=== PATIENT | male | born 1940 | race Caucasian/White ===

== ENCOUNTER → 2016-08-19 | Outpatient (CLI) | payer MEDICARE, OTHER ==
--- NOTE | 2016-08-19 23:04 | CT ---
EXAMINATION TYPE: CT abdomen pelvis wo con DATE OF EXAM: 08/19/2016 6:49 PM HISTORY: PT states of abdominal pain. HX of lymphoma. CT DLP: 390.8 mGycm. Automated Exposure Control for Dose Reduction was Utilized. TECHNIQUE: CT scan of the abdomen and pelvis is performed with oral but without IV contrast. COMPARISON: CT chest abdomen and pelvis December 14, 2015 FINDINGS: Within the limitations of a non-contrast study, the following observations are made. LUNG BASES: No significant abnormality is seen. LIVER/GB: Cholecystectomy clips are redemonstrated. PANCREAS: No significant abnormality is seen. SPLEEN: No significant abnormality is seen. ADRENALS: No significant abnormality is seen. KIDNEYS: A 1.2 cm simple appearing renal cyst anteriorly lower pole level right kidney on axial image 36 is felt stable. BOWEL: The oral contrast reaches level of the left colon. There is no suspicious small or large bowel dilatation seen. GENITAL ORGANS: There is heterogeneous enlarged prostate gland bulging on bladder base, underlying BP H is suspected, clinical correlation is advised. LYMPH NODES: There are slightly prominent new left groin lymph nodes. For reference left groin lymph node measures 1.0 x 0.9 cm on axial image 87. There are new enlarged retroperitoneal lymph nodes. For reference left periaortic lymph node measures 1.8 x 1.8 cm on axial image 38. Additional suspicious smaller but prominent retroperitoneal lymph nodes are seen superior to this. OSSEOUS STRUCTURES: Multilevel spurring and spine is redemonstrated. There is vacuum disc phenomenon with disc space narrowing L4-L5 level. OTHER: No significant additional abnormality is seen. IMPRESSION: 1. No significant acute finding is seen to account for patient's symptoms. 2. New suspicious retroperitoneal or left periaortic adenopathy worrisome for neoplastic recurrence. Clinical correlation advised. Consider PET/CT follow-up.
== END | disposition home or self-care (01) ==
LOC: RADCTMAIN 16:19
PROVIDERS: ATTEND Surgery
DX: C85.90 Non-Hodgkin lymphoma, unspecified, unspecified site (principal)
CPT/HCPCS: 74176

== ENCOUNTER 2017-05-02 11:50 | Day surgery (SDC) | payer MEDICARE ==
[2017-04-30 08:37] VITALS: BMI 24.1
[~2017-05-02 11:50] MED LIST: HEPARIN SODIUM,PORCINE 5,000 UNIT/ML 1 ML VIAL SQ ONE; LACTATED RINGERS 1,000 ML IV SCH; MORPHINE SULFATE 2 MG/ML SYRINGE IV PRN; ONDANSETRON 4 MG/2 ML VIAL IVP PRN; Pre Op ABX Message 1 EACH MISC MISCELLANE ONE; ceFAZolin IN SWFI 2 GM/20 ML SYRINGE IVP ONE
[2017-05-02] MEDS ORDERED: LIDOCAINE 1% 20 ML VIAL (10MG/ML) FOR IV START INTRADERMA ONE (12:20)
[2017-05-02] MEDS ORDERED: LIDOCAINE 1% INJ 10MG/ML (20 ML MDV) ONE (12:55)
[2017-05-02] MEDS ORDERED: PROPOFOL 10 MG/ML 20 ML VIAL IV ONE (12:55)
[2017-05-02] MEDS ORDERED: fentaNYL (PF) 50 MCG/ML 2 ML AMP ONE (12:55)
[2017-05-02] MEDS ORDERED: BUPIVACAINE (PF) 0.25% 30 ML VIAL SQ ONE ×2 (13:13)
[2017-05-02 13:45] VITALS: TEMP 97.1
[2017-05-02 14:10] VITALS: RESP 16
[2017-05-02 14:19] VITALS: BP 129/71; PULSE 53
--- NOTE | 2017-05-02 16:37 | P.OP ---
Date of Procedure: 05/02/17 Preoperative Diagnosis: Soft tissue mass of the scalp Postoperative Diagnosis: Same Procedure(s) Performed: Excision soft tissue mass of scalp Anesthesia: MAC, local Surgeon: Naomi Whyte Estimated Blood Loss (ml): 5 Pathology: other Condition: stable Disposition: PACU Indications for Procedure: 76 years old male presents with a scalp mass present for 20 yrs and now is painful. Operative Findings: Sebaceous cyst of the scalp Description of Procedure: The patient was brought to the operating room and placed in supine position. Scalp was prepped and draped. 2x1 cm cystic mass was excised completetly using bovie elctrocautery. Resulting defect 2x1 x1 cm . It was irrigated with normal saline and hemostasis was checked. It was closed in 2 layers using 3-0 vicryl and interrupted 3-0 Nylon
== END 2017-05-02 14:38 | disposition home or self-care (01) ==
LOC: OR 11:50
PROVIDERS: ATTEND Surgery
DX: L72.11 Pilar cyst (principal); K21.9 Gastro-esophageal reflux disease without esophagitis; I48.91 Unspecified atrial fibrillation; N42.9 Disorder of prostate, unspecified; Z91.041 Radiographic dye allergy status; Z88.8 Allergy status to other drugs, medicaments and biological substances; Z79.82 Long term (current) use of aspirin; Z79.891 Long term (current) use of opiate analgesic; Z79.899 Other long term (current) drug therapy
CPT/HCPCS: 11422; 12031; 88304; J1644; J0690; J2405; J2001; J3010; J2704

== ENCOUNTER → 2017-09-30 | Outpatient (CLI) | payer MEDICARE ==
--- NOTE | 2017-09-30 09:57 | XR ---
EXAMINATION TYPE: XR chest 2V DATE OF EXAM: 09/30/2017 COMPARISON: 01/29/2016 TECHNIQUE: PA and lateral views submitted. HISTORY: Lymphoma FINDINGS: The lungs are clear and there is no pneumothorax, pleural effusion, or focal pneumonia. Mild soft t issue prominence of the right suprahilar region may represent a related the patient's history of lymp tj. No overt failure. Findings appear stable from previous chest x-ray. IMPRESSION: 1. No acute process.
== END | disposition home or self-care (01) ==
LOC: RADXRMAIN 09:35
PROVIDERS: ATTEND Internal Medicine Hematology & Oncology
DX: C82.01 Follicular lymphoma grade I, lymph nodes of head, face, and neck (principal); I88.0 Nonspecific mesenteric lymphadenitis; K26.9 Duodenal ulcer, unspecified as acute or chronic, without hemorrhage or perforation; M15.9 Polyosteoarthritis, unspecified
CPT/HCPCS: 71046

== ENCOUNTER → 2018-06-06 | Outpatient (CLI) | payer MEDICARE ==
--- NOTE | 2018-06-07 10:41 | PE ---
EXAMINATION TYPE: PET CT fusion skull to thigh DATE OF EXAM: 06/06/2018 COMPARISON: CT abdomen pelvis 08/19/2016, chest abdomen pelvis CT 12/14/2015 Prior PET/CT: 09/07/2016 HISTORY: Lymphoma TECHNIQUE: Following the intravenous administration of 13.5 mCi of F-18 FDG, whole body images are p erformed from the skull base to the midthigh. Images are reviewed on the computer in the coronal, ax ial, and sagittal planes. Reconstructed rotating images are created on independent workstation and r eviewed on the computer. A localization and attenuation correction CT is performed in conjunction w ith the PET scan. DLP: 460.24 mGycm SCAN: Subsequent Blood glucose: 67 mg/dL Average Mediastinum SUV: 1.01 Average Liver SUV: 1.39 FINDINGS: NECK: No abnormal uptake. THORAX: There is mild increased uptake within the pretracheal lymph node with an SUV value of 1.9. PE T image 94. There is mild increased uptake within a right peribronchial lymph node at the right hilum measuring 2.6 SUV. PET image 103. A subtle nodule within the upper right middle lobe, PET image 112 has an SUV value of 0.3 and is not suspicious based on imaging. This area is stable from comparison studies 2015 and 2017. ABDOMEN: No abnormal uptake PELVIS: No abnormal uptake OSSEOUS STRUCTURES: No abnormal uptake LOCALIZATION CT: The ascending thoracic aorta at the level the main pulmonary artery is 3.9 cm patent main pulmonary artery the bifurcation is 3.3 cm. There are scattered lymph nodes within the mediasti num. Enlarged mediastinal adenopathy is not identified. The largest lymph node pretracheal space lynda ures 1.0 cm corresponds to the area of intermediate signal discussed above. COMPARISON: A subtle nodule within the upper right middle lobe, PET image 112 has an SUV value of 0.3 . This area is stable from comparison studies 2015 and 2017. Comparison PET/CT: The previous uptake within the right neck is not evident on the current exam. Upta ke within the mediastinum is diminished current examination. Uptake within the periaortic region with in the abdomen and pelvis are not evident on the current examination. No suspicious left inguinal linda nopathy is currently evident. No suspicious new areas of uptake are evident. IMPRESSION: 1. Previous focal areas of radiotracer accumulation have resolved. 2. Some mild residual may remain within mediastinal lymph nodes discussed above. 3. No suspicious new focal radiotracer accumulation to suggest recurrent or metastatic lymphoma.
== END | disposition home or self-care (01) ==
LOC: RADPETMAIN 11:37
PROVIDERS: ATTEND Internal Medicine Hematology & Oncology
DX: C82.01 Follicular lymphoma grade I, lymph nodes of head, face, and neck (principal)
CPT/HCPCS: 78815; A9552

== ENCOUNTER 2018-06-07 09:05 | Observation (INO) | payer MEDICARE ==
[2018-06-07 09:11] VITALS: RESP 18
[2018-06-07] MEDS ORDERED: SODIUM CHLORIDE 0.9% 1,000 ML IV STA (09:25)
[2018-06-07] MEDS ORDERED: HEPARIN SODIUM,PORCINE 10,000 UNIT/ML 1 ML VIAL IV STA (09:26)
[2018-06-07] MEDS ORDERED: HEPARIN SOD,PORK IN 0.45% NACL 25,000 UNIT in 0.45% NACL 1 250ML.BAG IV SCH (09:30)
--- NOTE | 2018-06-07 09:31 | ED ---
General Adult HPI - General Chief complaint: Weakness Stated complaint: Weakness Source: patient Mode of arrival: wheelchair Limitations: no limitations - Related Data Home Medications Medication Instructions Recorded Confirmed Aspirin 81 mg PO DAILY 07/25/15 06/07/18 Esomeprazole Magnesium [NexIUM] 20 mg PO QAM 07/25/15 06/07/18 Propafenone [Rythmol] 150 mg PO BID 07/25/15 06/07/18 Multivitamins, Thera [Multivitamin 1 tab PO DAILY 06/07/18 06/07/18 (formulary)] Allergies Allergy/AdvReac Type Severity Reaction Status Date / Time epinephrine Allergy Rapid Verified 06/07/18 09:47 Heart Rate Iodinated Contrast- Oral and Allergy Rash/Hives Verified 06/07/18 09:47 IV Dye [Iodinated Contrast Media - IV Dye] iodine Allergy Rash/Hives Verified 06/07/18 09:47 Review of Systems ROS Statement: Those systems with pertinent positive or pertinent negative responses have been documented in the HPI. ROS Other: All systems not noted in ROS Statement are negative. Past Medical History Past Medical History: Atrial Fibrillation, Cancer, GERD/Reflux, Osteoarthritis ( OA), Prostate Disorder Additional Past Medical History / Comment(s): Hiatal hernia. HX OF PVCs. LYMPHOMA History of Any Multi-Drug Resistant Organisms: None Reported Past Surgical History: Appendectomy, Cholecystectomy, Orthopedic Surgery Additional Past Surgical History / Comment(s): left knee, left rotator cuff , LEFT FOOT SURGERY Past Anesthesia/Blood Transfusion Reactions: No Reported Reaction Past Psychological History: No Psychological Hx Reported Smoking Status: Never smoker Past Alcohol Use History: None Reported Past Drug Use History: None Reported - Past Family History Brother(s) Family Medical History: Cancer Additional Family Medical History / Comment(s): LUNG CANCER Father Family Medical History: Cancer Additional Family Medical History / Comment(s): prostate Mother Family Medical History: Cancer Additional Family Medical History / Comment(s): uterine General Exam Limitations: no limitations Course Vital Signs 06/07/18 06/07/18 06/07/18 09:07 09:17 09:30 Temperature 97.4 F L Pulse Rate 74 99 Respiratory 18 18 18 Rate Blood Pressure 129/84 114/90 O2 Sat by Pulse 100 100 Oximetry 06/07/18 06/07/18 06/07/18 10:00 10:30 11:00 Temperature Pulse Rate 83 80 84 Respiratory 18 18 18 Rate Blood Pressure 114/87 112/76 105/81 O2 Sat by Pulse 99 99 99 Oximetry Medical Decision Making - Medical Decision Making Dictation was produced using [employer] dictation software. please excuse any grammatical, word or spelling errors. Chief Complaint: 77-year-old male with past medical history of paroxysmal atrial fibrillation, leukemia presents with palpitations. History of Present Illness:77-year-old male. Patient states he does have history of paroxysmal atrial fibrillation. Patient has been managed on antiarrhythmics. Last time he had episode of atrial fibrillation was allegedly 3 years ago. Patient not on any anticoagulation medications. Patient states he woke up with feelings of palpitations. He got up to the bathroom. [place] so weak that he couldn't stand. He felt at baseline last night. He takes propafenone and 150 mg twice a day. 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 The ROS documented in this emergency department record has been reviewed and confirmed by me. Those systems with pertinent positive or negative responses have been documented in the HPI. All other systems are other negative and/or noncontributory. PHYSICAL EXAM: General Impression: Alert and oriented x3, not in acute distress HEENT: Normocephalic atraumatic, extra-ocular movements intact, pupils equal and reactive to light bilaterally, mucous membranes moist. Cardiovascular: Irregular Chest: Lungs clear to auscultation bilaterally, no rhonchi, no wheeze, no rales Abdomen: Bowel sounds present, abdomen soft, non-tender, non-distended, no organomegaly Musculoskeletal: Pulses present and equal in all extremities, no peripheral edema Motor: Power 5/5 bilaterally, no focal deficits noted Neurological: CN II-XII grossly intact, no focal motor or sensory deficits noted Skin: Intact with no visualized rashes Psych: Normal affect and mood ED course: 77-year-old male with chief complaint of weakness. As upon arrival are within acceptable limits. EKG was obtained showing atrial fibrillation. Discussed patient case with Dr. Chinag who recommended that patient be given 300 mg of propafenon and await for conversion to sinus tachycardia.Laboratory evaluation obtained. CBC, metabolic panel, cardiac enzymes are negative. Urinalysis unremarkable. Patient reevaluated still found to be in atrial fibrillation. Patient started on heparin. I believe patient is a good candidate for heparin. He has a low HAS-BLED score. Patient to be admitted to internal medicine with cardiology consultation for management of recurrent atrial fibrillation. Patient reevaluated found with stable medical condition. Patient does not have a rapid ventricular rate. EKG Interpretation: A 12 lead EKG was obtained. It was interpreted by myself and attending physician. There is a P wave before every QRS complex. Rate is 85. Rhythm is inch or fibrillation, HI interval, QRS 86, QTC 440. QT is not prolonged. No ST segment depression or elevation.. Overall, this EKG is unremarkable - Lab Data Result diagrams: 06/07/18 09:36 12 09:36 Lab Results 06/07/18 06/07/18 06/07/18 Range/Units 09:36 09:36 09:36 WBC 4.8 (3.8-10.6) k/uL RBC 5.19 (4.30-5.90) m/uL Hgb 16.2 (13.0-17.5) gm/dL Hct 48.4 (39.0-53.0) % MCV 93.4 (80.0-100.0) fL MCH 31.2 (25.0-35.0) pg MCHC 33.5 (31.0-37.0) g/dL RDW 13.7 (11.5-15.5) % Plt Count 140 L (150-450) k/uL Neutrophils % 62 % Lymphocytes % 23 % Monocytes % 9 % Eosinophils % 3 % Basophils % 1 % Neutrophils # 3.0 (1.3-7.7) k/uL Lymphocytes # 1.1 (1.0-4.8) k/uL Monocytes # 0.4 (0-1.0) k/uL Eosinophils # 0.1 (0-0.7) k/uL Basophils # 0.0 (0-0.2) k/uL Sodium 139 (137-145) mmol/L Potassium 4.5 (3.5-5.1) mmol/L Chloride 107 (98-107) mmol/L Carbon Dioxide 26 (22-30) mmol/L Anion Gap 6 mmol/L BUN 16 (9-20) mg/dL Creatinine 0.94 (0.66-1.25) mg/dL Est GFR (CKD-EPI)AfAm >90 (>60 ml/min/1.73 sqM) Est GFR (CKD-EPI)NonAf 79 (>60 ml/min/1.73 sqM) Glucose 94 (74-99) mg/dL Calcium 9.3 (8.4-10.2) mg/dL Magnesium 2.1 (1.6-2.3) mg/dL Total Bilirubin 1.0 (0.2-1.3) mg/dL AST 26 (17-59) U/L ALT 24 (21-72) U/L Alkaline Phosphatase 50 (38-126) U/L Total Creatine Kinase 75 (55-170) U/L CK-MB (CK-2) 0.7 (0.0-2.4) ng/mL CK-MB (CK-2) Rel Index 0.9 Troponin I <0.012 (0.000-0.034) ng/mL Total Protein 6.7 (6.3-8.2) g/dL Albumin 3.9 (3.5-5.0) g/dL TSH 3.850 (0.465-4.680) mIU/L Urine Color Urine Appearance (Clear) Urine pH (5.0-8.0) Ur Specific [place] (1.001-1.035) Urine Protein (Negative) Urine Glucose (UA) (Negative) Urine Ketones (Negative) Urine Blood (Negative) Urine Nitrite (Negative) Urine Bilirubin (Negative) Urine Urobilinogen (<2.0) mg/dL Ur Leukocyte Esterase (Negative) 06/07/18 Range/Units 11:08 WBC (3.8-10.6) k/uL RBC (4.30-5.90) m/uL Hgb (13.0-17.5) gm/dL Hct (39.0-53.0) % MCV (80.0-100.0) fL MCH (25.0-35.0) pg MCHC (31.0-37.0) g/dL RDW (11.5-15.5) % Plt Count (150-450) k/uL Neutrophils % % Lymphocytes % % Monocytes % % Eosinophils % % Basophils % % Neutrophils # (1.3-7.7) k/uL Lymphocytes # (1.0-4.8) k/uL Monocytes # (0-1.0) k/uL Eosinophils # (0-0.7) k/uL Basophils # (0-0.2) k/uL Sodium (137-145) mmol/L Potassium (3.5-5.1) mmol/L Chloride (98-107) mmol/L Carbon Dioxide (22-30) mmol/L Anion Gap mmol/L BUN (9-20) mg/dL Creatinine (0.66-1.25) mg/dL Est GFR (CKD-EPI)AfAm (>60 ml/min/1.73 sqM) Est GFR (CKD-EPI)NonAf (>60 ml/min/1.73 sqM) Glucose (74-99) mg/dL Calcium (8.4-10.2) mg/dL Magnesium (1.6-2.3) mg/dL Total Bilirubin (0.2-1.3) mg/dL AST (17-59) U/L ALT (21-72) U/L Alkaline Phosphatase (38-126) U/L Total Creatine Kinase (55-170) U/L CK-MB (CK-2) (0.0-2.4) ng/mL CK-MB (CK-2) Rel Index Troponin I (0.000-0.034) ng/mL Total Protein (6.3-8.2) g/dL Albumin (3.5-5.0) g/dL TSH (0.465-4.680) mIU/L Urine Color Light Yellow Urine Appearance Clear (Clear) Urine pH 8.5 H (5.0-8.0) Ur Specific [place] 1.007 (1.001-1.035) Urine Protein Negative (Negative) Urine Glucose (UA) Negative (Negative) Urine Ketones 1+ H (Negative) Urine Blood Negative (Negative) Urine Nitrite Negative (Negative) Urine Bilirubin Negative (Negative) Urine Urobilinogen <2.0 (<2.0) mg/dL Ur Leukocyte Esterase Negative (Negative) Disposition Clinical Impression: Atrial fibrillation Disposition: ADMITTED IP TO THIS HOSP Condition: Good Is patient prescribed a controlled substance at d/c from ED?: No Referrals: Liban Molina MD [Primary Care Provider] - 1-2 days Decision Time: 11:41
[2018-06-07] MEDS ORDERED: PROPAFENONE 150 MG TAB PO STA (09:33)
[2018-06-07 09:49] LABS: Basophils % (A) 1 %; Eosinophils # (A) 0.1 k/uL (0-0.7); Eosinophils % (A) 3 %; HCT 48.4 % (39.0-53.0); HGB 16.2 gm/dL (13.0-17.5); Lymphocytes # (A) 1.1 k/uL (1.0-4.8); Lymphocytes % (A) 23 %; MCH 31.2 pg (25.0-35.0); MCHC 33.5 g/dL (31.0-37.0); MCV 93.4 fL (80.0-100.0); Mean Platelet Volume 8.5; Monocytes # (A) 0.4 k/uL (0-1.0); Monocytes % (A) 9 %; Neutrophils % (A) 62 %; Platelet Count 140 k/uL (150-450); RBC 5.19 m/uL (4.30-5.90); RDW 13.7 % (11.5-15.5); WBC 4.8 k/uL (3.8-10.6)
[2018-06-07 09:58] LABS: Partial Thromboplastin Time 24.4 sec (22.0-30.0); Prothrombin Time 10.3 sec (9.0-12.0)
[2018-06-07 10:06] LABS: ALT 24 U/L (21-72); AST 26 U/L (17-59); Albumin 3.9 g/dL (3.5-5.0); Alkaline Phosphatase 50 U/L (38-126); Anion Gap 6 mmol/L; Blood Urea Nitrogen 16 mg/dL (9-20); Calcium 9.3 mg/dL (8.4-10.2); Carbon Dioxide 26 mmol/L (22-30); Chloride 107 mmol/L (98-107); Glucose 94 mg/dL (74-99); Magnesium 2.1 mg/dL (1.6-2.3); Potassium 4.5 mmol/L (3.5-5.1); Sodium 139 mmol/L (137-145); Total Protein 6.7 g/dL (6.3-8.2)
[2018-06-07 10:13] LABS: Creatine Kinase 75 U/L (55-170)
[2018-06-07 10:26] LABS: Creatine Kinase MB 0.7 ng/mL (0.0-2.4); Troponin I <0.012 ng/mL (0.000-0.034)
[2018-06-07 11:22] LABS: Appearance,Urine Clear (Clear); Bilirubin,Urine Negative (Negative); Blood,Urine Negative (Negative); Color,Urine Light Yellow; Glucose,Urine (UA) Negative (Negative); Ketones,Urine 1+ (Negative); Leukocyte Esterase,Urine Negative (Negative); Nitrite,Urine Negative (Negative); PH, Urine 8.5 (5.0-8.0); Protein,Urine Negative (Negative); Specific Gravity,Urine 1.007 (1.001-1.035); Urobilinogen,Urine <2.0 mg/dL (<2.0)
[2018-06-07] MEDS ORDERED: NALOXONE 0.4 MG/ML 1 ML VIAL IV PRN (11:41)
--- NOTE | 2018-06-07 11:43 | XR ---
EXAMINATION TYPE: XR chest 2V DATE OF EXAM: 06/07/2018 COMPARISON: 09/30/2017 HISTORY: Shortness of breath TECHNIQUE: Frontal and lateral views of the chest are obtained. FINDINGS: Scattered senescent parenchymal changes noted. Hyperinflation compatible with COPD. No evidence for infiltrate. No evidence for atelectasis. Heart size is stable. Mediastinal structures are stable and grossly unremarkable. No evidence for hilar prominence. Degenerative changes dorsal spine. IMPRESSION: 1. No evidence for acute pulmonary disease.
[2018-06-07] MEDS ORDERED: SODIUM CHLORIDE 0.9% 1,000 ML IV SCH (11:45)
--- NOTE | 2018-06-07 12:18 | ED ---
Medical Decision Making - Medical Decision Making Patient was given 300 mg of Propaganone. Patient spontaneously converted back to sinus rhythm. Heparin was discontinued. Discussed patient case with Dr. perez patient advised to resume his normal medications. who agrees that patient is clear for discharge. To follow-up with cardiology outpatient. Told to resume his normal medications - Lab Data Result diagrams: 06/07/18 09:36 06/07/18 09:36 Lab Results 06/07/18 06/07/18 06/07/18 Range/Units 09:36 09:36 09:36 WBC 4.8 (3.8-10.6) k/uL RBC 5.19 (4.30-5.90) m/uL Hgb 16.2 (13.0-17.5) gm/dL Hct 48.4 (39.0-53.0) % MCV 93.4 (80.0-100.0) fL MCH 31.2 (25.0-35.0) pg MCHC 33.5 (31.0-37.0) g/dL RDW 13.7 (11.5-15.5) % Plt Count 140 L (150-450) k/uL Neutrophils % 62 % Lymphocytes % 23 % Monocytes % 9 % Eosinophils % 3 % Basophils % 1 % Neutrophils # 3.0 (1.3-7.7) k/uL Lymphocytes # 1.1 (1.0-4.8) k/uL Monocytes # 0.4 (0-1.0) k/uL Eosinophils # 0.1 (0-0.7) k/uL Basophils # 0.0 (0-0.2) k/uL PT (9.0-12.0) sec INR (<1.2) APTT (22.0-30.0) sec Sodium 139 (137-145) mmol/L Potassium 4.5 (3.5-5.1) mmol/L Chloride 107 (98-107) mmol/L Carbon Dioxide 26 (22-30) mmol/L Anion Gap 6 mmol/L BUN 16 (9-20) mg/dL Creatinine 0.94 (0.66-1.25) mg/dL Est GFR (CKD-EPI)AfAm >90 (>60 ml/min/1.73 sqM) Est GFR (CKD-EPI)NonAf 79 (>60 ml/min/1.73 sqM) Glucose 94 (74-99) mg/dL Calcium 9.3 (8.4-10.2) mg/dL Magnesium 2.1 (1.6-2.3) mg/dL Total Bilirubin 1.0 (0.2-1.3) mg/dL AST 26 (17-59) U/L ALT 24 (21-72) U/L Alkaline Phosphatase 50 (38-126) U/L Total Creatine Kinase 75 (55-170) U/L CK-MB (CK-2) 0.7 (0.0-2.4) ng/mL CK-MB (CK-2) Rel Index 0.9 Troponin I <0.012 (0.000-0.034) ng/mL Total Protein 6.7 (6.3-8.2) g/dL Albumin 3.9 (3.5-5.0) g/dL TSH 3.850 (0.465-4.680) mIU/L Urine Color Urine Appearance (Clear) Urine pH (5.0-8.0) Ur Specific [place] (1.001-1.035) Urine Protein (Negative) Urine Glucose (UA) (Negative) Urine Ketones (Negative) Urine Blood (Negative) Urine Nitrite (Negative) Urine Bilirubin (Negative) Urine Urobilinogen (<2.0) mg/dL Ur Leukocyte Esterase (Negative) 06/07/18 06/07/18 Range/Units 09:36 11:08 WBC (3.8-10.6) k/uL RBC (4.30-5.90) m/uL Hgb (13.0-17.5) gm/dL Hct (39.0-53.0) % MCV (80.0-100.0) fL MCH (25.0-35.0) pg MCHC (31.0-37.0) g/dL RDW (11.5-15.5) % Plt Count (150-450) k/uL Neutrophils % % Lymphocytes % % Monocytes % % Eosinophils % % Basophils % % Neutrophils # (1.3-7.7) k/uL Lymphocytes # (1.0-4.8) k/uL Monocytes # (0-1.0) k/uL Eosinophils # (0-0.7) k/uL Basophils # (0-0.2) k/uL PT 10.3 (9.0-12.0) sec INR 1.0 (<1.2) APTT 24.4 (22.0-30.0) sec Sodium (137-145) mmol/L Potassium (3.5-5.1) mmol/L Chloride (98-107) mmol/L Carbon Dioxide (22-30) mmol/L Anion Gap mmol/L BUN (9-20) mg/dL Creatinine (0.66-1.25) mg/dL Est GFR (CKD-EPI)AfAm (>60 ml/min/1.73 sqM) Est GFR (CKD-EPI)NonAf (>60 ml/min/1.73 sqM) Glucose (74-99) mg/dL Calcium (8.4-10.2) mg/dL Magnesium (1.6-2.3) mg/dL Total Bilirubin (0.2-1.3) mg/dL AST (17-59) U/L ALT (21-72) U/L Alkaline Phosphatase (38-126) U/L Total Creatine Kinase (55-170) U/L CK-MB (CK-2) (0.0-2.4) ng/mL CK-MB (CK-2) Rel Index Troponin I (0.000-0.034) ng/mL Total Protein (6.3-8.2) g/dL Albumin (3.5-5.0) g/dL TSH (0.465-4.680) mIU/L Urine Color Light Yellow Urine Appearance Clear (Clear) Urine pH 8.5 H (5.0-8.0) Ur Specific [place] 1.007 (1.001-1.035) Urine Protein Negative (Negative) Urine Glucose (UA) Negative (Negative) Urine Ketones 1+ H (Negative) Urine Blood Negative (Negative) Urine Nitrite Negative (Negative) Urine Bilirubin Negative (Negative) Urine Urobilinogen <2.0 (<2.0) mg/dL Ur Leukocyte Esterase Negative (Negative) Disposition Clinical Impression: Atrial fibrillation Disposition: ADMITTED IP TO THIS [facility] Condition: Good Time of Disposition: 12:17
[2018-06-07 13:10] VITALS: BP 116/74; PULSE 60; TEMP 98.1
== END 2018-06-07 12:22 | disposition home or self-care (01) ==
LOC: EC 09:05 → 3SCARD 11:44
PROVIDERS: ADMIT Internal Medicine; ATTEND Internal Medicine
DX: I48.0 Paroxysmal atrial fibrillation (principal); K21.9 Gastro-esophageal reflux disease without esophagitis; Z79.82 Long term (current) use of aspirin; Z79.899 Other long term (current) drug therapy; Z85.6 Personal history of leukemia; Z85.72 Personal history of non-Hodgkin lymphomas; Z80.1 Family history of malignant neoplasm of trachea, bronchus and lung
CPT/HCPCS: 96376; 96365; 99285; 36415; 93005; 80053; 82550; 82553; 83735; 84443; 84484; 85025; 85610; 85730; 81003; 71046; G0378; J1644 ×2

== ENCOUNTER 2019-07-06 11:25 | Emergency (ER) | payer MEDICARE ==
[2019-07-06 11:36] VITALS: BP 129/74; RESP 18
[2019-07-06] MEDS ORDERED: SODIUM CHLORIDE 0.9% 500 ML 500 ML IV STA (11:57)
[2019-07-06] MEDS ORDERED: ONDANSETRON 4 MG/2 ML VIAL IVP STA (11:58)
--- NOTE | 2019-07-06 12:04 | ED ---
General Adult HPI - General Chief complaint: Chest Pain Stated complaint: chest pain Time Seen by Provider: 07/06/19 11:35 Source: patient, RN notes reviewed, old records reviewed Mode of arrival: ambulatory Limitations: no limitations - History of Present Illness Initial comments: This is a 78-year-old male who presents emergency Department stating he has a history of atrial fibrillation and lymphoma. Patient states this morning about 2:30 in the morning he could feel his heart racing so he waited a while and then took 3 Rythmol pills where he normally takes one. Patient states this is with the assembl[employer] is told to do. Patient states it seemed to settle down but it came back and then it seemed to go away and then it came back again so he decided come emergency department. Patient states lying in bed he has no symptoms but earlier today any time he got up to walk around the heart rate was start going and he would feel very lightheaded and weak. Patient denies any chest pain patient denies being short of breath. Patient denies any vomiting. Patient states he has had no diaphoretic episode. Patient is however nauseated. Patient denies diarrhea. Patient denies any swelling to the legs. - Related Data Home Medications Medication Instructions Recorded Confirmed Aspirin 81 mg PO DAILY 07/25/15 06/07/18 Esomeprazole Magnesium [NexIUM] 20 mg PO QAM 07/25/15 06/07/18 Propafenone [Rythmol] 150 mg PO BID 07/25/15 06/07/18 Multivitamins, Thera [Multivitamin 1 tab PO DAILY 06/07/18 06/07/18 (formulary)] Allergies Allergy/AdvReac Type Severity Reaction Status Date / Time epinephrine Allergy Rapid Verified 06/07/18 09:47 Heart Rate Iodinated Contrast Media Allergy Rash/Hives Verified 06/07/18 09:47 [Iodinated Contrast Media - IV Dye] iodine Allergy Rash/Hives Verified 06/07/18 09:47 Review of Systems ROS Statement: Those systems with pertinent positive or pertinent negative responses have been documented in the HPI. ROS Other: All systems not noted in ROS Statement are negative. Past Medical History Past Medical History: Atrial Fibrillation, Cancer, GERD/Reflux, Osteoarthritis (OA), Prostate Disorder Additional Past Medical History / Comment(s): Hiatal hernia. HX OF PVCs. LYM PHOMA History of Any Multi-Drug Resistant Organisms: None Reported Past Surgical History: Appendectomy, Cholecystectomy, Orthopedic Surgery Additional Past Surgical History / Comment(s): left knee, left rotator cuff , LEFT FOOT SURGERY Past Anesthesia/Blood Transfusion Reactions: No Reported Reaction Past Psychological History: No Psychological Hx Reported Smoking Status: Never smoker Past Alcohol Use History: None Reported Past Drug Use History: None Reported - Past Family History Brother(s) Family Medical History: Cancer Additional Family Medical History / Comment(s): LUNG CANCER Father Family Medical History: Cancer Additional Family Medical History / Comment(s): prostate Mother Family Medical History: Cancer Additional Family Medical History / Comment(s): uterine General Exam - General Exam Comments Initial Comments: GENERAL: Patient is well-developed and well-nourished. Patient is nontoxic and well- hydrated and is in mild distress. ENT: Neck is soft and supple. No significant lymphadenopathy is noted. Oropharynx is clear. Moist mucous membranes. Neck has full range of motion without eliciting any pain. EYES: The sclera were anicteric and conjunctiva were pink and moist. Extraocular movements were intact and pupils were equal round and reactive to light. Eyelids were unremarkable. PULMONARY: Unlabored respirations. Good breath sounds bilaterally. No audible rales rhonchi or wheezing was noted. CARDIOVASCULAR: There is a regular rate and rhythm without any murmurs gallops or rubs. ABDOMEN: Soft and nontender with normal bowel sounds. No palpable organomegaly was noted. There is no palpable pulsatile mass. SKIN: Skin is clear with no lesions or rashes and otherwise unremarkable. NEUROLOGIC: Patient is alert and oriented x3. Cranial nerves II through XII are grossly intact. Motor and sensory are also intact. Normal speech, volume and content. Symmetrical smile. MUSCULOSKELETAL: Normal extremities with adequate strength and full range of motion. LYMPHATICS: No significant lymphadenopathy is noted PSYCHIATRIC: Normal psychiatric evaluation. Limitations: no limitations Course Vital Signs 07/06/19 11:33 Temperature 98.0 F Pulse Rate 68 Respiratory 18 Rate Blood Pressure 129/74 O2 Sat by Pulse 100 Oximetry Medical Decision Making - Medical Decision Making EKG shows normal sinus rhythm at 63 bpm NH interval is 204 QRS is under QT intervals 416 QTC is 425 per patient's EKG shows no ST segment elevation or depression or T wave abnormalities are noted. Chest x-ray shows no acute abnormality. 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 Patient did get up and ambulate and he had no recurrence of his episode. - Lab Data Result diagrams: 07/06/19 11:52 07/06/19 11:52 Lab Results 07/06/19 07/06/19 07/06/19 Range/Units 11:52 11:52 11:52 WBC 4.3 (3.8-10.6) k/uL RBC 4.85 (4.30-5.90) m/uL Hgb 15.0 (13.0-17.5) gm/dL Hct 46.1 (39.0-53.0) % MCV 95.0 (80.0-100.0) fL MCH 30.8 (25.0-35.0) pg MCHC 32.5 (31.0-37.0) g/dL RDW 13.2 (11.5-15.5) % Plt Count 131 L (150-450) k/uL Neutrophils % 59 % Lymphocytes % 24 % Monocytes % 10 % Eosinophils % 3 % Basophils % 1 % Neutrophils # 2.6 (1.3-7.7) k/uL Lymphocytes # 1.0 (1.0-4.8) k/uL Monocytes # 0.4 (0-1.0) k/uL Eosinophils # 0.1 (0-0.7) k/uL Basophils # 0.0 (0-0.2) k/uL PT (9.0-12.0) sec INR (<1.2) APTT (22.0-30.0) sec Sodium 137 (137-145) mmol/L Potassium 4.5 (3.5-5.1) mmol/L Chloride 103 (98-107) mmol/L Carbon Dioxide 27 (22-30) mmol/L Anion Gap 7 mmol/L BUN 11 (9-20) mg/dL Creatinine 0.81 (0.66-1.25) mg/dL Est GFR (CKD-EPI)AfAm >90 (>60 ml/min/1.73 sqM) Est GFR (CKD-EPI)NonAf 86 (>60 ml/min/1.73 sqM) Glucose 87 (74-99) mg/dL Calcium 8.9 (8.4-10.2) mg/dL Magnesium 2.1 (1.6-2.3) mg/dL Total Bilirubin 0.6 (0.2-1.3) mg/dL AST 28 (17-59) U/L ALT 18 (4-49) U/L Alkaline Phosphatase 52 (38-126) U/L Troponin I (0.000-0.034) ng/mL NT-Pro-B Natriuret Pep 269 pg/mL Total Protein 7.0 (6.3-8.2) g/dL Albumin 4.0 (3.5-5.0) g/dL 07/06/19 07/06/19 Range/Units 11:52 11:52 WBC (3.8-10.6) k/uL RBC (4.30-5.90) m/uL Hgb (13.0-17.5) gm/dL Hct (39.0-53.0) % MCV (80.0-100.0) fL MCH (25.0-35.0) pg MCHC (31.0-37.0) g/dL RDW (11.5-15.5) % Plt Count (150-450) k/uL Neutrophils % % Lymphocytes % % Monocytes % % Eosinophils % % Basophils % % Neutrophils # (1.3-7.7) k/uL Lymphocytes # (1.0-4.8) k/uL Monocytes # (0-1.0) k/uL Eosinophils # (0-0.7) k/uL Basophils # (0-0.2) k/uL PT 9.9 (9.0-12.0) sec INR 0.9 (<1.2) APTT 23.8 (22.0-30.0) sec Sodium (137-145) mmol/L Potassium (3.5-5.1) mmol/L Chloride (98-107) mmol/L Carbon Dioxide (22-30) mmol/L Anion Gap mmol/L BUN (9-20) mg/dL Creatinine (0.66-1.25) mg/dL Est GFR (CKD-EPI)AfAm (>60 ml/min/1.73 sqM) Est GFR (CKD-EPI)NonAf (>60 ml/min/1.73 sqM) Glucose (74-99) mg/dL Calcium (8.4-10.2) mg/dL Magnesium (1.6-2.3) mg/dL Total Bilirubin (0.2-1.3) mg/dL AST (17-59) U/L ALT (4-49) U/L Alkaline Phosphatase (38-126) U/L Troponin I <0.012 (0.000-0.034) ng/mL NT-Pro-B Natriuret Pep pg/mL Total Protein (6.3-8.2) g/dL Albumin (3.5-5.0) g/dL Disposition Clinical Impression: Atrial fibrillation Disposition: HOME SELF-CARE Condition: Good Instructions (If sedation given, give patient instructions): A-fib (Atrial Fibrillation) (ED) Is patient prescribed a controlled substance at d/c from ED?: No Referrals: Jhonatan Pham MD [STAFF PHYSICIAN] - 1-2 days Time of Disposition: 13:15
[2019-07-06 12:23] LABS: Basophils % (A) 1 %; Eosinophils # (A) 0.1 k/uL (0-0.7); Eosinophils % (A) 3 %; HCT 46.1 % (39.0-53.0); Lymphocytes % (A) 24 %; MCH 30.8 pg (25.0-35.0); MCHC 32.5 g/dL (31.0-37.0); Mean Platelet Volume 9.3; Monocytes # (A) 0.4 k/uL (0-1.0); Monocytes % (A) 10 %; Neutrophils # (A) 2.6 k/uL (1.3-7.7); Neutrophils % (A) 59 %; Platelet Count 131 k/uL (150-450); RBC 4.85 m/uL (4.30-5.90); RDW 13.2 % (11.5-15.5); WBC 4.3 k/uL (3.8-10.6)
[2019-07-06 12:28] LABS: INR 0.9 (<1.2); Partial Thromboplastin Time 23.8 sec (22.0-30.0); Prothrombin Time 9.9 sec (9.0-12.0)
[2019-07-06 12:31] LABS: ALT 18 U/L (4-49); AST 28 U/L (17-59); African American GFR (CKD) >90 (>60 ml/min/1.73 sqM); Alkaline Phosphatase 52 U/L (38-126); Anion Gap 7 mmol/L; Blood Urea Nitrogen 11 mg/dL (9-20); Calcium 8.9 mg/dL (8.4-10.2); Carbon Dioxide 27 mmol/L (22-30); Chloride 103 mmol/L (98-107); Glucose 87 mg/dL (74-99); Magnesium 2.1 mg/dL (1.6-2.3); Non-African American GFR(CKD) 86 (>60 ml/min/1.73 sqM); Potassium 4.5 mmol/L (3.5-5.1); Sodium 137 mmol/L (137-145); Total Bilirubin 0.6 mg/dL (0.2-1.3)
--- NOTE | 2019-07-06 12:36 | XR ---
EXAMINATION TYPE: XR chest 2V DATE OF EXAM: 07/06/2019 COMPARISON: 06/07/2018 HISTORY: Chest pain TECHNIQUE: Frontal and lateral views of the chest are obtained. FINDINGS: New right infrahilar airspace disease is seen. Remainder the lungs are clear. Cardiomedias tinal silhouette is within normal limits. Mild diffuse osseous demineralization. Mild degenerative ch callum of the spine. IMPRESSION: Right infrahilar vague airspace disease may represent atelectasis or pneumonia in the ap propriate clinical setting.
[2019-07-06 13:17] VITALS: PULSE 62; TEMP 97.6
== END 2019-07-06 13:36 | disposition home or self-care (01) ==
LOC: EC 11:25
DX: I48.91 Unspecified atrial fibrillation (principal); R11.0 Nausea; K21.9 Gastro-esophageal reflux disease without esophagitis; M19.90 Unspecified osteoarthritis, unspecified site; Z88.8 Allergy status to other drugs, medicaments and biological substances; Z91.041 Radiographic dye allergy status; Z91.048 Other nonmedicinal substance allergy status; Z79.1 Long term (current) use of non-steroidal anti-inflammatories (NSAID); Z79.899 Other long term (current) drug therapy; Z85.72 Personal history of non-Hodgkin lymphomas; Z90.49 Acquired absence of other specified parts of digestive tract; Z53.20 Procedure and treatment not carried out because of patient's decision for unspecified reasons
CPT/HCPCS: 36415; 71046; 80053; 83735; 83880; 84484; 85025; 85610; 85730; 93005; 96360; 99285

== ENCOUNTER → 2019-08-17 | Outpatient (CLI) | payer MEDICARE ==
--- NOTE | 2019-08-17 13:29 | XR ---
EXAMINATION TYPE: XR chest 2V DATE OF EXAM: 08/17/2019 COMPARISON: Prior chest x-ray 07/06/2019 HISTORY: Right lung infiltrate, atrial fibrillation TECHNIQUE: Frontal and lateral views of the chest are obtained. FINDINGS: There is no focal air space opacity, pleural effusion, or pneumothorax seen. The cardiac silhouette size is within normal limits. The osseous structures are intact, there is a spinal curva ture. Surgical clips are present in the right upper quadrant. There is thoracic spondylosis. IMPRESSION: No acute cardiopulmonary process.
== END | disposition home or self-care (01) ==
LOC: RADXRMAIN 09:29
PROVIDERS: ATTEND Internal Medicine Hematology & Oncology
DX: C82.01 Follicular lymphoma grade I, lymph nodes of head, face, and neck (principal); I88.0 Nonspecific mesenteric lymphadenitis; K26.9 Duodenal ulcer, unspecified as acute or chronic, without hemorrhage or perforation; M15.9 Polyosteoarthritis, unspecified
CPT/HCPCS: 71046

== ENCOUNTER → 2020-05-31 | Outpatient (CLI) | payer MEDICARE ==
--- NOTE | 2020-06-04 12:30 | MR ---
EXAMINATION TYPE: MR davidson/lshumera wo/w con DATE OF EXAM: 05/31/2020 1:14 PM COMPARISON: NONE HISTORY: Anesthesia of skin, follicular lymphoma, low back pain, numbness in feet and kaela legs, pain in arms, cervical disorder/disease CONTRAST: The patient was injected with 7.5 mL intravenous Gadavist gadolinium contrast. Multiplanar MultiSpin echo imaging of the cervical spine and lumbar was performed pre- and postadmini stration of intravenous contrast. Cervical spine MRI: C2-C3: No evidence for degenerative disc disease. No disc bulge/herniation or protrusion. No Canal stenosis. Foramina are patent bilaterally. C3-C4: Foraminal encroachment is present due to uncovertebral joint hypertrophy right greater than le ft. No evident disc herniation or significant spinal stenosis. C4-C5: There is mild degenerative disc space narrowing noted with posterior disc bulge and mild effac ement ventral thecal sac. No evidence for disc herniation or central stenosis. Mild bilateral foramin al encroachment identified. C5-C6: Moderate disc desiccation posterocentral disc bulge. Effacement ventral thecal sac however the re is no evidence for central stenosis. Bilateral foraminal encroachment identified. C6-C7: Mild to moderate disc desiccation identified. No disc bulge/herniation or protrusion. No [place] l stenosis. Foramina are mildly reduced bilaterally due to uncovertebral joint hypertrophy. C7-T1: No evidence for degenerative disc disease. No disc bulge/herniation or protrusion. No Canal stenosis. Foramina are patent bilaterally. No cervical spine fracture. There is normal alignment. Cervical spinal cord is of normal signal. C raniovertebral junction relationships are within normal limits. No pathologic enhancement. Suspect a n underlying thoracic lumbar scoliosis is present. IMPRESSION: Multilevel degenerative disc disease with disc bulging and neural foraminal encroachment as outlined above. Lumbar spine MRI: Anterolisthesis grade 1 L3-4, retrolisthesis grade 1 L2-3, there is associated loss of disc height an d signal at L4-5, loss of disc signal L3-4, signal is somewhat increased at L2-3. Lumbar vertebral estefania dies show preserved height. There is multilevel spondylosis with endplate discogenic marrow signal ch callum. The conus is at T12-L1 shows an unremarkable appearance. Circumaortic left renal vein is suspec manfred. No suspicious enhancement following contrast administration. L5-S1 shows facet arthropathy change. No significant foraminal encroachment or spinal stenosis L4-5: Facet arthropathy with hypertrophy ligamentum results in a causes posterior lateral mass effect on the thecal sac. Posterior extension endplate disc complex contacts the anterior thecal sac. Circu mferential extension endplate disc complex results in some foraminal encroachment greater on the righ t. L3-4: The listhesis contributes to cause bilateral foraminal encroachment greater on the left, there is posterior broad-based disc bulge causing anterior mass effect on the thecal sac. Facet arthropathy with hypertrophy of the ligamentum flavum results in a trefoil appearance of the thecal sac. L2-3: Posterior extension endplate disc complex causes mild anterior mass effect on the thecal sac. T here is some facet arthropathy change. No significant foraminal encroachment. L1-2: Posterior broad-based disc bulge causes slight anterior mass effect on the thecal sac. No signi ficant spinal stenosis or foraminal encroachment. There is some facet arthropathy change. IMPRESSION: Multilevel degenerative disc disease and facet arthropathy, foraminal encroachment as jaclyn cribed.
== END | disposition home or self-care (01) ==
LOC: RADMRIMAIN 11:54
PROVIDERS: ATTEND Psychiatry & Neurology Neurology
DX: M50.20 Other cervical disc displacement, unspecified cervical region (principal); M50.30 Other cervical disc degeneration, unspecified cervical region; M51.36 Other intervertebral disc degeneration, lumbar region; M47.816 Spondylosis without myelopathy or radiculopathy, lumbar region; C82.01 Follicular lymphoma grade I, lymph nodes of head, face, and neck
CPT/HCPCS: 72156; 72158; A9585

== ENCOUNTER → 2020-07-14 | Outpatient (CLI) | payer MEDICARE ==
--- NOTE | 2020-07-17 11:55 | PE ---
Nuclear medicine PET/CT HISTORY: Lymphoma right neck, subsequent, C 82.01 Patient received 10.7 mCi F-18 FDG intravenously in delayed scanning was performed from the skull bas e to the mid thighs. Localization and attenuation correction CT scan was performed. Correlation to prior nuclear medicine PET/CT 06/06/2018 Chest and neck: There is no cervical or supraclavicular adenopathy. There is no evident lung mass. Th ere is no pleural or pericardial effusion. There is no axillary or hilar adenopathy, shotty nodes are present within the mediastinum. Aorticopulmonary window node, retrocaval pretracheal node shows some mild uptake, SUV is 3.2, 3.0 respectively. Similar findings on prior exam. ABDOMEN: Patient is post cholecystectomy. No evident liver mass. No retroperitoneal adenopathy. No as cites. No pelvic adenopathy or inguinal adenopathy. Osseous structures are stable. IMPRESSION: Essentially stable findings.
== END | disposition home or self-care (01) ==
LOC: RADPETMAIN 10:36
PROVIDERS: ATTEND Internal Medicine Hematology & Oncology
DX: C82.01 Follicular lymphoma grade I, lymph nodes of head, face, and neck (principal)
CPT/HCPCS: 78815; A9552

== ENCOUNTER → 2020-07-28 | Outpatient (CLI) | payer MEDICARE ==
--- NOTE | 2020-07-28 15:13 | MR ---
EXAMINATION TYPE: MR brain wo/w con DATE OF EXAM: 07/28/2020 COMPARISON: None HISTORY: Lymphoma, weakness. CONTRAST: Performed utilizing 7.5 mL intravenous Gadavist gadolinium contrast. TECHNIQUE: Multiplanar, multiecho imaging on a 3.0 Merlene magnet is performed through the brain. Stud y is performed within 24 hours of arrival to the hospital. The craniovertebral junction is normal. The pituitary is normal. Diffusion-weighted imaging is performed. No abnormal hyperintensity is present to suggest an acute i ntracranial infarct or acute ischemic change. There is some subcortical white matter changes within the right temporal lobe and within the right fr ontal lobe and left frontal lobe. Deep white matter changes are within the left [place] radiata and ri ght subcortical centrum semiovale. Findings are nonspecific but can be related to microvascular ische yaya change. 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 No suspicious enhancement is evident. No mass lesions are evident. Ventricles and sulci are appropriate for the patient age. IMPRESSIONS: 1. Scattered subcortical and deep white matter changes are nonspecific. Microvascular ischemic change most likely within the differential.
== END | disposition home or self-care (01) ==
LOC: RADMRIMAIN 13:38
PROVIDERS: ATTEND Internal Medicine Hematology & Oncology
DX: I67.82 Cerebral ischemia (principal); R90.82 White matter disease, unspecified; C82.01 Follicular lymphoma grade I, lymph nodes of head, face, and neck
CPT/HCPCS: 70553; A9585

== ENCOUNTER → 2020-08-09 | Outpatient (CLI) | payer MEDICARE ==
--- NOTE | 2020-08-09 09:39 | US ---
EXAMINATION TYPE: US venous doppler duplex LE DATE OF EXAM: 08/09/2020 8:17 AM COMPARISON: NONE CLINICAL HISTORY: 79-year-old male I70.213 Claudication. Patient states his legs feel achy at night. No swelling. No redness. No injury. Not on blood thinners. SIDE PERFORMED: Bilateral TECHNIQUE: The lower extremity deep venous system is examined utilizing real time linear array sonog martínez with graded compression, doppler sonography and color-flow sonography. FINDINGS: VESSELS IMAGED: Common Femoral Vein Deep Femoral Vein Greater Saphenous Vein * Femoral Vein Popliteal Vein Small Saphenous Vein * Proximal Calf Veins (* superficial vessels) Right Leg: Negative for DVT Left Leg: Negative for DVT IMPRESSION: No evidence for DVT within the bilateral lower extremities imaged from the groin to the upper calves.
[2020-08-09 09:42] LABS: Basophils % (A) 1 %; Eosinophils # (A) 0.1 k/uL (0-0.7); Eosinophils % (A) 2 %; HCT 44.5 % (39.0-53.0); HGB 14.6 gm/dL (13.0-17.5); Lymphocytes # (A) 1.3 k/uL (1.0-4.8); Lymphocytes % (A) 31 %; MCH 31.1 pg (25.0-35.0); MCHC 32.7 g/dL (31.0-37.0); Mean Platelet Volume 8.9; Monocytes # (A) 0.3 k/uL (0-1.0); Monocytes % (A) 8 %; Neutrophils # (A) 2.3 k/uL (1.3-7.7); Neutrophils % (A) 57 %; Platelet Count 147 k/uL (150-450); RBC 4.69 m/uL (4.30-5.90); RDW 13.5 % (11.5-15.5); WBC 4.1 k/uL (3.8-10.6)
[2020-08-09 09:54] LABS: ALT 19 U/L (4-49); AST 27 U/L (17-59); African American GFR (CKD) >90 (>60 ml/min/1.73 sqM); Albumin 4.2 g/dL (3.5-5.0); Alkaline Phosphatase 42 U/L (38-126); Anion Gap 5 mmol/L; Blood Urea Nitrogen 14 mg/dL (9-20); Calcium 9.1 mg/dL (8.4-10.2); Carbon Dioxide 32 mmol/L (22-30); Chloride 99 mmol/L (98-107); Creatine Kinase 46 U/L (55-170); Glucose 90 mg/dL (74-99); LDH 361 U/L (313-618); Non-African American GFR(CKD) 85 (>60 ml/min/1.73 sqM); Potassium 4.4 mmol/L (3.5-5.1); Sodium 136 mmol/L (137-145); Total Bilirubin 0.8 mg/dL (0.2-1.3); Total Protein 6.8 g/dL (6.3-8.2); Uric Acid 4.9 mg/dL (3.5-8.5)
[2020-08-09 10:02] LABS: Appearance,Urine Clear (Clear); Bilirubin,Urine Negative (Negative); Blood,Urine Negative (Negative); Color,Urine Light Yellow; Glucose,Urine (UA) Negative (Negative); Ketones,Urine Negative (Negative); Leukocyte Esterase,Urine Negative (Negative); Nitrite,Urine Negative (Negative); Protein,Urine Negative (Negative); Specific Gravity,Urine 1.004 (1.001-1.035); Urobilinogen,Urine <2.0 mg/dL (<2.0)
[2020-08-09 11:30] LABS: Erythrocyte Sedimentation Rate 2 mm/hr (0-15)
[2020-08-09 11:39] LABS: C Reactive Protein <5.0 mg/L (<10.0)
[2020-08-09 17:30] LABS: Anti-DNA, DS unit <1.0 IU/mL; Anti-Smith Ab Interp NEGATIVE (NEGATIVE); DNA Double-Stranded NEGATIVE (NEGATIVE)
[2020-08-10 00:17] LABS: Ferritin 209.8 ng/mL (22.0-322.0)
[2020-08-10 00:23] LABS: % Iron Saturation 45.32 (15.00-50.00); Folate, Serum 21.6 ng/mL; Iron 126 ug/dL (65-175); PSA Annual Screen 1.3 ng/mL (0.0-4.0); Rheumatoid Factor, Qnt <4 IU/mL (0-15); Total Iron Binding Capacity 278 ug/dL (228-460)
== END ==
LOC: RADUSWWP 07:41
PROVIDERS: ATTEND Family Medicine
DX: I70.213 Atherosclerosis of native arteries of extremities with intermittent claudication, bilateral legs (principal)
CPT/HCPCS: 86235 ×3; 80053; 85652; 84443; 82607; 82728; 82550; 82746; 83540; 83550; 83615; 83735; 84550; 85025; 86140; 86431; 81003; 84402; 84403; 87040; 86618; 82306; 86780; 86038; 86225; 87086; 93970; G0103

== ENCOUNTER → 2020-12-07 | Outpatient (CLI) | payer MEDICARE ==
--- NOTE | 2020-12-07 10:04 | XR ---
EXAMINATION TYPE: XR tibia fibula LT DATE OF EXAM: 12/07/2020 COMPARISON: NONE HISTORY: Pain TECHNIQUE: Two views are submitted. FINDINGS: The osseous structures are intact. Mild narrowing medial compartment of the knee joint. Hypertrophic arthropathy patellofemoral joint. IMPRESSION: 1. Arthropathy.
--- NOTE | 2020-12-07 12:15 | FL ---
EXAMINATION TYPE: FL UGI air w small bowel DATE OF EXAM: 12/07/2020 COMPARISON: Correlation PET/CT 07/14/2020 HISTORY: 80-year-old male R21.9, GERD and generalized abdominal pain. TECHNIQUE: A double contrast UGI study is performed with small bowel follow through. A total of 2 minutes 43 seconds of fluoroscopic time was utilized during procedure and 73 images obta ined. FINDINGS: Crossbar Frame Wirer image of the abdomen shows cholecystectomy clips and a couple borderline distended small bowel loops in the left mid abdomen measuring up to 3.1 cm, probably transient. Questionable contour deformity of the esophagus at the level of the thoracic inlet on the LPO images does not persist on true lateral views. No fixed narrowing or mucosal abnormality seen. Incidental moderate dalia aspiration extending into the trachea. There is only a mild cough reflex wh ich is elicited. The esophagus shows normal motility and emptying into the stomach. No evidence of hiatal hernia. We were unable to elicit any gastroesophageal reflux with Valsalva or positional maneuvers. The stomach shows normal distensibility, peristalsis, and mucosal folds. No evidence of any mass or ulcer disease. The duodenal bulb and sweep are unremarkable. The small bowel study shows normal transit to the colon in 30 minutes. There is normal mucosal fold p attern throughout the small bowel. There is no evidence of any stricture or filling defect noted. T he terminal ileum is unremarkable. IMPRESSION: 1. Moderate dalia aspiration extending to the lower trachea. Note that there was only a mild cough re flex elicited. Recommend further speech pathology evaluation. 2. Otherwise, unremarkable upper GI examination. No hiatal hernia. Unable to elicit gastroesophageal reflux during the course of the study. 3. Small bowel transit time of approximately 30 minutes which is at the lower end of the normal range . No specific abnormality identified on the small bowel follow-through.
== END | disposition home or self-care (01) ==
LOC: RADFLMAIN 07:53
PROVIDERS: ATTEND Family Medicine
DX: R10.84 Generalized abdominal pain (principal); M17.12 Unilateral primary osteoarthritis, left knee
CPT/HCPCS: 74240; 74248

== ENCOUNTER → 2020-12-26 | Outpatient (CLI) | payer MEDICARE ==
--- NOTE | 2020-12-26 11:19 | FL ---
EXAMINATION TYPE: FL barium swallow w video DATE OF EXAM: 12/26/2020 COMPARISON: NONE HISTORY: Choking and coughing with all consistencies of food TECHNIQUE: Fluoroscopy. FINDINGS: Fluoroscopic guidance was provided for the procedure performed in conjunction with the [facility] pathology department. Please see complete report forthcoming from the Speech Pathology departmen t. Various consistencies from thin liquid to solids were administered. Fluoroscopy time 1 minute 47 seconds. Number of images: 0. There is transient penetration with thin liquids. Additional thicker liquids without aspiration or pe netration. Mild to moderate pooling was observed in the vallecula. There is slow inversion of the epiglottis during the swallowing. IMPRESSION: 1. Transient penetration with thin liquids. 2. Please see complete report forthcoming from the speech pathology department.
== END | disposition home or self-care (01) ==
LOC: RADFLMAIN 10:47
PROVIDERS: ATTEND Family Medicine
DX: R05 Cough (principal)
CPT/HCPCS: 74230

== ENCOUNTER → 2021-02-02 | Outpatient (CLI) | payer MEDICARE ==
--- NOTE | 2021-02-05 06:36 | PE ---
EXAMINATION TYPE: PET CT fusion skull to thigh DATE OF EXAM: 02/02/2021 COMPARISON: Prior PET/CT July 14, 2020 and older studies HISTORY: Lymphoma diagnosed right neck in 2015 completed chemotherapy 2016. TECHNIQUE: Following the intravenous administration of 10.62 mCi of F-18 FDG, whole body images are performed from the skull base to the midthigh. Images are reviewed on the computer in the coronal, a xial, and sagittal planes. Reconstructed rotating images are created on independent workstation and reviewed on the computer. A localization and attenuation correction CT is performed in conjunction with the PET scan. Blood glucose level equals 98. SCAN: Subsequent Scan FINDINGS: MEAN SUV MEDIASTINUM: 1.11 MEAN SUV LIVER: 2.00 SKULL BASE AND NECK: No new areas of abnormal hypermetabolic uptake. No new enlarged adenopathy. CHEST, MEDIASTINUM, AND HILAR REGION: Stable slightly more prominent AP window and subcarinal lymph n odes with mild hypermetabolic uptake. Currently max SUV less than 2.5 slightly less prominent than mo st recent PET/CT. No new areas of abnormal hypermetabolic uptake. ABDOMEN AND PELVIS: Normal excretion redemonstrated. No new hypermetabolic or enlarged adenopathy mini ntified. OSSEOUS STRUCTURES: No new suspicious hypermetabolic uptake is seen in osseous structures. OTHER CT: Dependent atelectasis in bilateral lower lobes is present. Ascending aorta measures up to 3.9 cm in diameter. Small degree of bilateral gynecomastia is noted. Cholecystectomy clips are redemonstrated. Small simple appearing 2.0 cm right renal cyst mid pole lev el laterally right kidney is redemonstrated. Prostate gland is enlarged in size suggesting consistent with BPH. Multilevel spurring in the thoracolumbar spine is redemonstrated. Scoliotic curvature. Facet arthropa thy lower lumbar levels is again seen. IMPRESSION: No new enlarged or hypermetabolic lymph nodes to suggest active lymphoma recurrence.
== END | disposition home or self-care (01) ==
LOC: RADPETMAIN 09:45
PROVIDERS: ATTEND Internal Medicine Hematology & Oncology
DX: C82.01 Follicular lymphoma grade I, lymph nodes of head, face, and neck (principal); J98.11 Atelectasis; N62 Hypertrophy of breast; Z85.72 Personal history of non-Hodgkin lymphomas
CPT/HCPCS: 78815; A9552

== ENCOUNTER → 2022-02-08 | Outpatient (CLI) | payer MEDICARE ==
--- NOTE | 2022-02-08 10:59 | PE ---
EXAMINATION TYPE: PET CT fusion skull to thigh DATE OF EXAM: 02/08/2022 COMPARISON: Prior PET/CT February 02, 2021 and older studies HISTORY: Lymphoma diagnosed right neck in 2015 completed chemotherapy 2016. TECHNIQUE: Following the intravenous administration of 9.9 mCi of F-18 FDG, whole body images are pe rformed from the skull base to the midthigh. Images are reviewed on the computer in the coronal, axi al, and sagittal planes. Reconstructed rotating images are created on independent workstation and re viewed on the computer. A localization and attenuation correction CT is performed in conjunction wi th the PET scan. Blood glucose level equals 72 SCAN: Subsequent Scan FINDINGS: MEAN SUV MEDIASTINUM: 1.13 MEAN SUV LIVER: 2.21 SKULL BASE AND NECK: No new areas of abnormal hypermetabolic uptake. No new enlarged hypermetabolic a denopathy. CHEST, MEDIASTINUM, AND HILAR REGION: Stable slightly more prominent AP window, pericarinal, and subc arinal lymph nodes without abnormal hypermetabolic uptake. Currently max SUV less than 2.5 similar to most recent PET/CT. No new areas of abnormal hypermetabolic uptake. ABDOMEN AND PELVIS: Normal excretion redemonstrated. No new hypermetabolic enlarged adenopathy ident ified. OSSEOUS STRUCTURES: No new suspicious hypermetabolic uptake is seen in osseous structures. OTHER CT: Dependent atelectasis in bilateral lower lobes is redemonstrated. Ascending aorta measures up to 4.0 cm in diameter. Cholecystectomy clips are redemonstrated. Small simple appearing 2.0 cm right renal cyst mid pole lev el laterally right kidney is redemonstrated axial image 180. Prostate gland is enlarged in size consistent with BPH. Multilevel spurring in the thoracolumbar spine is redemonstrated. Slight Scoliotic curvature again se en. Facet arthropathy lower lumbar levels is again seen. IMPRESSION: No new enlarged or hypermetabolic lymph nodes to suggest active lymphoma recurrence. No s ignificant change from most recent PET/CT.
== END | disposition home or self-care (01) ==
LOC: RADPETMAIN 08:54
PROVIDERS: ATTEND Internal Medicine Hematology & Oncology
DX: C82.01 Follicular lymphoma grade I, lymph nodes of head, face, and neck (principal)
CPT/HCPCS: 78815; A9552

== ENCOUNTER → 2022-11-26 | Outpatient (CLI) | payer MEDICARE ==
--- NOTE | 2022-11-27 12:17 | MR ---
EXAMINATION TYPE: MR brain wo con DATE OF EXAM: 11/26/2022 9:14 PM COMPARISON: MRI brain 07/28/2020. CLINICAL INDICATION:Male, 81 years old with history of M79.602 R93.7 M79.601 H81.212 R13.10 R20.2 G93 .9; Hx Lymphoma, Abnormal MRI showed abnormality in Brain TECHNIQUE: Multi planar, multi sequence imaging was performed through the brain including: T1, T2, In version recovery, Diffusion weighted imaging, and gradient echo imaging. No gadolinium was given. FINDINGS: Mild cerebral atrophy with proportional dilation of the ventricular system. Left cerebellum blooming artifact with multiple vessels extending away from this region. Unchanged dating back to 2012. Scatte red foci of high T2 signal intensity are seen within the periventricular white matter. Midline struct ures show no abnormality. Diffusion-weighted imaging shows no evidence of restricted diffusion. The bone marrow signal is within normal limits. Paranasal sinuses and mastoid air cells: No significant paranasal sinus disease. Visualized orbits: Orbital contents are intact. IMPRESSION: 1. No evidence of intracranial mass or acute/subacute infarct. 2. Left cerebellum cavernoma. Unchanged from 2012. 3. Nonspecific white matter changes, likely secondary to small vessel ischemic disease.
== END | disposition home or self-care (01) ==
LOC: RADMRIMAIN 19:11
PROVIDERS: ATTEND Psychiatry & Neurology Neurology
DX: R90.82 White matter disease, unspecified (principal); M79.602 Pain in left arm; R93.7 Abnormal findings on diagnostic imaging of other parts of musculoskeletal system; M79.601 Pain in right arm; H81.21 Vestibular neuronitis, right ear; R13.10 Dysphagia, unspecified; R20.2 Paresthesia of skin; G93.9 Disorder of brain, unspecified
CPT/HCPCS: 70551

== ENCOUNTER 2023-09-18 10:47 | Emergency (ER) | payer MEDICARE ==
[2023-09-18 11:34] VITALS: TEMP 97.7
--- NOTE | 2023-09-18 11:34 | ED ---
General Adult HPI - General Chief complaint: Shortness of Breath Stated complaint: DAFNE Time Seen by Provider: 09/18/23 11:05 Source: patient, RN notes reviewed Mode of arrival: ambulatory Limitations: no limitations - History of Present Illness Initial comments: Patient is a pleasant 82-year-old male present to the emergency department with concerns with difficulty in breathing. Symptoms have been present the past few weeks. Patient does have history of a cough however that is fairly chronic for him. Dyspnea is not necessarily exertional. Patient states when he rides his bike he actually has no difficulty at all. No calf pain. - Related Data Home Medications Medication Instructions Recorded Confirmed Aspirin 81 mg PO DAILY 07/25/15 06/07/18 Esomeprazole Magnesium [NexIUM] 20 mg PO QAM 07/25/15 06/07/18 Propafenone [Rythmol] 150 mg PO BID 07/25/15 06/07/18 Multivitamins, Thera [Multivitamin 1 tab PO DAILY 06/07/18 06/07/18 (formulary)] Allergies Allergy/AdvReac Type Severity Reaction Status Date / Time epinephrine Allergy Rapid Verified 09/18/23 11:03 Heart Rate Iodinated Contrast Media Allergy Rash/Hives Verified 09/18/23 11:03 [Iodinated Contrast Media - IV Dye] iodine Allergy Rash/Hives Verified 09/18/23 11:03 Review of Systems ROS Statement: Those systems with pertinent positive or pertinent negative responses have been documented in the HPI. ROS Other: All systems not noted in ROS Statement are negative. Constitutional: Denies: fever Eyes: Denies: eye pain ENT: Denies: ear pain Respiratory: Reports: as per HPI, cough, dyspnea Cardiovascular: Reports: as per HPI, chest pain (Patient questions if he has some mild chest pressure) Endocrine: Denies: fatigue Gastrointestinal: Denies: abdominal pain Past Medical History Past Medical History: Atrial Fibrillation, Cancer, GERD/Reflux, Osteoarthritis (OA), Prostate Disorder Additional Past Medical History / Comment(s): Hiatal hernia. HX OF PVCs. LYMPHOMA History of Any Multi-Drug Resistant Organisms: None Reported Past Surgical History: Appendectomy, Cholecystectomy, Orthopedic Surgery Additional Past Surgical History / Comment(s): left knee, left rotator cuff , LEFT FOOT SURGERY Past Anesthesia/Blood Transfusion Reactions: No Reported Reaction Past Psychological History: No Psychological Hx Reported Smoking Status: Never smoker Past Alcohol Use History: None Reported Past Drug Use History: None Reported - Past Family History Brother(s) Family Medical History: Cancer Additional Family Medical History / Comment(s): LUNG CANCER Father Family Medical History: Cancer Additional Family Medical History / Comment(s): prostate Mother Family Medical History: Cancer Additional Family Medical History / Comment(s): uterine General Exam Limitations: no limitations General appearance: alert, in no apparent distress Head exam: Present: normocephalic Eye exam: Present: normal appearance Neck exam: Present: normal inspection Respiratory exam: Present: normal lung sounds bilaterally. Absent: chest wall tenderness Cardiovascular Exam: Present: regular rate, normal rhythm, normal heart sounds Expanded Peripheral pulses: 2+: Radial (R), Radial (L), Posterior Tibialis (R), Posterior Tibialis (L) GI/Abdominal exam: Present: soft. Absent: tenderness Extremities exam: Present: normal inspection. Absent: pedal edema, calf tenderness Neurological exam: Present: alert Psychiatric exam: Present: normal affect, normal mood Skin exam: Present: normal color Course Vital Signs 09/18/23 09/18/23 11:00 12:41 Temperature 97.7 F Pulse Rate 70 53 L Respiratory 18 16 Rate Blood Pressure 149/79 157/95 O2 Sat by Pulse 98 100 Oximetry EKG Findings - EKG Results: EKG: interpreted by ERMD (Left axis. Prominent T waves. Atrial rhythm.) Medical Decision Making - Medical Decision Making Was pt. sent in by a medical professional or institution (, PA, FOUNDER CHAIRMAN AND CHIEF CREATIVE OFFICER, urgent care, hospital, or penitentiary...) When possible be specific @ -Patient was advised to come to the hospital by his primary care physician Did you speak to anyone other than the patient for history (EMS, parent, family, police, friend...)? What history was obtained from this source @ -No Did you review nursing and triage notes (agree or disagree)? Why? @ -I reviewed and agree with nursing and triage notes Were old charts reviewed (outside hosp., previous admission, EMS record, old EKG, old radiological studies, urgent care reports/EKG's, penitentiary records)? Report findings @ -No old charts were reviewed Differential Diagnosis (chest pain, altered mental status, abdominal pain women, abdominal pain men, vaginal bleeding, weakness, fever, dyspnea, syncope, headache, dizziness, GI bleed, back pain, seizure, CVA, palpatations, mental health, musculoskeletal)? @ -Differential Dyspnea: Coronary syndrome, arrhythmia, tamponade, asthma, COPD, pulmonary embolism, pneumonia, pneumothorax, pulmonary effusion, anaphylaxis, diabetic ketoacidosis, flailed chest, pulmonary contusion, diaphragmatic rupture, anemia, neuromuscular, this is not meant to be an all-inclusive list. EKG interpreted by me (3pts min.). @ -As above X-rays interpreted by me (1pt min.). @ -Chest x-ray shows no acute process CT interpreted by me (1pt min.). @ -None done U/S interpreted by me (1pt. min.). @ -None done What testing was considered but not performed or refused? (CT, X-rays, U/S, labs)? Why? @ -None What meds were considered but not given or refused? Why? @ -None Did you discuss the management of the patient with other professionals (professionals i.e. , PA, FOUNDER CHAIRMAN AND CHIEF CREATIVE OFFICER, lab, RT, psych nurse, social work manager, shaft repairer, teacher, security officer supervisor, bilingual case manager)? Give summary @ -No Was smoking cessation discussed for >3mins.? @ -No Was critical care preformed (if so, how long)? @ -No Were there social determinants of health that impacted care today? How? (Home lessness, low income, unemployed, alcoholism, drug addiction, transportation, low edu. Level, literacy, decrease access to med. care, [facility], rehab)? @ -No Was there de-escalation of care discussed even if they declined (Discuss DNR or withdrawal of care, Hospice)? DNR status @ -Discussion with patient regarding hospitalization however patient refuses. Patient is made aware of limitations of testing in the emergency department. Patient is made aware that all causes have not been ruled out. Patient is made aware of limitations and delay of blood work testing including troponin. Patient is made aware of risks and does demonstrate understanding What co-morbidities impacted this encounter? (DM, HTN, Smoking, COPD, CAD, Cancer, CVA, ARF, Chemo, Hep., AIDS, mental health diagnosis, sleep apnea, morbid obesity)? @ -None Was patient admitted / discharged? Hospital course, mention meds given and route, prescriptions, significant lab abnormalities, going to OR and other pertinent info. @ -Patient reevaluated and resting comfortably in bed. Patient symptom-free at this time. Patient questions if his symptoms are related to his known mild heart valve problem or his recurrence of lymphoma. Discussion had regarding admission with cardiac consult. Patient does not feel this is necessary and does refuse this. Patient is agreeable to follow-up with both his oncologist and tire retreader. Undiagnosed new problem with uncertain prognosis? @ -No Drug Therapy requiring intensive monitoring for toxicity (Heparin, Nitro, Insulin, Cardizem)? @ -No Were any procedures done? @ -No Diagnosis/symptom? @ -Dyspnea Acute, or Chronic, or Acute on Chronic? @ -Acute Uncomplicated (without systemic symptoms) or Complicated (systemic symptoms)? @ -Default Side effects of treatment? @ -No Exacerbation, Progression, or Severe Exacerbation? @ -No Poses a threat to life or bodily function? How? (Chest pain, [place], [place], pneumonia, PE, COPD, DKA, ARF, appy, cholecystitis, CVA, Diverticulitis, Homicidal, Suicidal, threat to staff... and all critical care pts) @ -No - Lab Data Result diagrams: 09/18/23 11:38 09/18/23 11:38 Lab Results 09/18/23 09/18/23 09/18/23 Range/Units 11:38 11:38 11:38 WBC 4.1 (3.8-10.6) k/uL RBC 4.49 (4.30-5.90) m/uL Hgb 14.4 (13.0-17.5) gm/dL Hct 44.7 (39.0-53.0) % MCV 99.5 (80.0-100.0) fL MCH 32.1 (25.0-35.0) pg MCHC 32.3 (31.0-37.0) g/dL RDW 13.4 (11.5-15.5) % Plt Count 143 L (150-450) k/uL MPV 9.7 Neutrophils % 64 % Lymphocytes % 24 % Monocytes % 7 % Eosinophils % 1 % Basophils % 1 % Neutrophils # 2.6 (1.3-7.7) k/uL Lymphocytes # 1.0 (1.0-4.8) k/uL Monocytes # 0.3 (0-1.0) k/uL Eosinophils # 0.1 (0-0.7) k/uL Basophils # 0.0 (0-0.2) k/uL PT 10.3 (10.0-12.5) sec INR 0.9 (<1.2) APTT 23.5 (22.0-30.0) sec D-Dimer 0.31 (<0.60) mg/L FEU Sodium 137 (137-145) mmol/L Potassium 4.5 (3.5-5.1) mmol/L Chloride 104 (98-107) mmol/L Carbon Dioxide 27 (22-30) mmol/L Anion Gap 6 mmol/L BUN 14 (9-20) mg/dL Creatinine 0.74 (0.66-1.25) mg/dL Est GFR (CKD-EPI)AfAm >90 (>60 ml/min/1.73 sqM) Est GFR (CKD-EPI)NonAf 87 (>60 ml/min/1.73 sqM) Glucose 108 H (74-99) mg/dL Plasma Lactic Acid Gilbert (0.7-2.0) mmol/L Calcium 9.0 (8.4-10.2) mg/dL Magnesium 2.0 (1.6-2.3) mg/dL Total Bilirubin 0.7 (0.2-1.3) mg/dL AST 27 (17-59) U/L ALT 17 (4-49) U/L Alkaline Phosphatase 37 L (38-126) U/L Troponin I (0.000-0.034) ng/mL NT-Pro-B Natriuret Pep 320 pg/mL Total Protein 6.7 (6.3-8.2) g/dL Albumin 3.9 (3.5-5.0) g/dL Influenza Type A (PCR) (Not Detectd) Influenza Type B (PCR) (Not Detectd) RSV (PCR) (Not Detectd) SARS-CoV-2 (PCR) (Not Detectd) 09/18/23 09/18/23 09/18/23 Range/Units 11:38 11:38 11:38 WBC (3.8-10.6) k/uL RBC (4.30-5.90) m/uL Hgb (13.0-17.5) gm/dL Hct (39.0-53.0) % MCV (80.0-100.0) fL MCH (25.0-35.0) pg MCHC (31.0-37.0) g/dL RDW (11.5-15.5) % Plt Count (150-450) k/uL MPV Neutrophils % % Lymphocytes % % Monocytes % % Eosinophils % % Basophils % % Neutrophils # (1.3-7.7) k/uL Lymphocytes # (1.0-4.8) k/uL Monocytes # (0-1.0) k/uL Eosinophils # (0-0.7) k/uL Basophils # (0-0.2) k/uL PT (10.0-12.5) sec INR (<1.2) APTT (22.0-30.0) sec D-Dimer (<0.60) mg/L FEU Sodium (137-145) mmol/L Potassium (3.5-5.1) mmol/L Chloride (98-107) mmol/L Carbon Dioxide (22-30) mmol/L Anion Gap mmol/L BUN (9-20) mg/dL Creatinine (0.66-1.25) mg/dL Est GFR (CKD-EPI)AfAm (>60 ml/min/1.73 sqM) Est GFR (CKD-EPI)NonAf (>60 ml/min/1.73 sqM) Glucose (74-99) mg/dL Plasma Lactic Acid Gilbert 1.2 (0.7-2.0) mmol/L Calcium (8.4-10.2) mg/dL Magnesium (1.6-2.3) mg/dL Total Bilirubin (0.2-1.3) mg/dL AST (17-59) U/L ALT (4-49) U/L Alkaline Phosphatase (38-126) U/L Troponin I <0.012 (0.000-0.034) ng/mL NT-Pro-B Natriuret Pep pg/mL Total Protein (6.3-8.2) g/dL Albumin (3.5-5.0) g/dL Influenza Type A (PCR) Not Detected (Not Detectd) Influenza Type B (PCR) Not Detected (Not Detectd) RSV (PCR) Not Detected (Not Detectd) SARS-CoV-2 (PCR) Not Detected (Not Detectd) Disposition Clinical Impression: Shortness of breath Disposition: HOME SELF-CARE Condition: Stable Instructions (If sedation given, give patient instructions): Shortness of Breath (ED) Additional Instructions: Please do follow-up with your primary care physician as well as your oncologist as well as your tire retreader in the next 1 or 2 days for recheck. Return for chest discomfort, pressure or pain, difficulty breathing, fevers, swelling in the legs, worsening symptoms or any other concerns. Is patient prescribed a controlled substance at d/c from ED?: No Referrals: Pranay Dickson DO [Primary Care Provider] - 1-2 days Brando Chiang MD [STAFF PHYSICIAN] - 1-2 days Rajeev Abdul [STAFF PHYSICIAN] - 1-2 days Time of Disposition: 13:53
--- NOTE | 2023-09-18 11:47 | XR ---
EXAMINATION TYPE: XR chest 2V DATE OF EXAM: 09/18/2023 COMPARISON: 08/17/2019 TECHNIQUE: PA and lateral views submitted. HISTORY: Difficulty breathing FINDINGS: The lungs are clear and there is no pneumothorax, pleural effusion, or focal pneumonia. Heart size normal and no overt failure. Osseous structures demonstrate hypertrophic and degenerative changes of the spine. The age of the thoracic aorta. Underlying COPD. Postsurgical change involving the upper ab domen. IMPRESSION: 1. No acute process.
[2023-09-18 12:02] LABS: Basophils % (A) 1 %; Eosinophils # (A) 0.1 k/uL (0-0.7); Eosinophils % (A) 1 %; HCT 44.7 % (39.0-53.0); HGB 14.4 gm/dL (13.0-17.5); Lymphocytes % (A) 24 %; MCH 32.1 pg (25.0-35.0); MCHC 32.3 g/dL (31.0-37.0); MCV 99.5 fL (80.0-100.0); Mean Platelet Volume 9.7; Monocytes # (A) 0.3 k/uL (0-1.0); Monocytes % (A) 7 %; Neutrophils # (A) 2.6 k/uL (1.3-7.7); Neutrophils % (A) 64 %; Platelet Count 143 k/uL (150-450); RBC 4.49 m/uL (4.30-5.90); RDW 13.4 % (11.5-15.5); WBC 4.1 k/uL (3.8-10.6)
[2023-09-18 12:09] LABS: ALT 17 U/L (4-49); AST 27 U/L (17-59); African American GFR (CKD) >90 (>60 ml/min/1.73 sqM); Albumin 3.9 g/dL (3.5-5.0); Alkaline Phosphatase 37 U/L (38-126); Anion Gap 6 mmol/L; Blood Urea Nitrogen 14 mg/dL (9-20); Carbon Dioxide 27 mmol/L (22-30); Chloride 104 mmol/L (98-107); Glucose 108 mg/dL (74-99); Non-African American GFR(CKD) 87 (>60 ml/min/1.73 sqM); Potassium 4.5 mmol/L (3.5-5.1); Sodium 137 mmol/L (137-145); Total Bilirubin 0.7 mg/dL (0.2-1.3); Total Protein 6.7 g/dL (6.3-8.2)
[2023-09-18 12:16] LABS: NT-Pro-B-Type Natriuretic Pept 320 pg/mL
[2023-09-18 12:36] LABS: INR 0.9 (<1.2); Partial Thromboplastin Time 23.5 sec (22.0-30.0); Prothrombin Time 10.3 sec (10.0-12.5)
[2023-09-18 14:21] VITALS: BP 132/94; PULSE 63; RESP 18
== END 2023-09-18 14:13 | disposition home or self-care (01) ==
LOC: EC 10:47
DX: R06.02 Shortness of breath (principal); R06.00 Dyspnea, unspecified; Z91.041 Radiographic dye allergy status; Z88.8 Allergy status to other drugs, medicaments and biological substances; Z90.49 Acquired absence of other specified parts of digestive tract
CPT/HCPCS: 36415; 71046; 80053; 83605; 83735; 83880; 84484; 85025; 85379; 85610; 85730; 87636; 93005; 99285

== ENCOUNTER 2024-05-17 16:12 | Emergency (ER) | payer MEDICARE ==
--- NOTE | 2024-05-17 17:04 | ED ---
Wound/Laceration HPI - General Chief Complaint: Wound/Laceration Stated Complaint: L hand lac Time Seen by Provider: 05/17/24 16:57 Source: patient, RN notes reviewed Mode of arrival: ambulatory Limitations: no limitations - History of Present Illness Initial Comments: 83-year-old male presented today with chief complaint of left finger laceration prior to arrival. States he was cutting mandy metal with a roll grinder and accidentally cut left second digit. States the cut is through his skin as well as his nail. Last tetanus 5 years ago. Denies blood thinners. - Related Data Home Medications Medication Instructions Recorded Confirmed Aspirin 81 mg PO DAILY 07/25/15 06/07/18 Esomeprazole Magnesium [NexIUM] 20 mg PO QAM 07/25/15 06/07/18 Propafenone [Rythmol] 150 mg PO BID 07/25/15 06/07/18 Multivitamins, Thera [Multivitamin 1 tab PO DAILY 06/07/18 06/07/18 (formulary)] Previous Rx's Medication Instructions Recorded Cephalexin [Keflex] 500 mg PO Q12HR 7 Days #14 cap 05/17/24 Allergies Allergy/AdvReac Type Severity Reaction Status Date / Time epinephrine Allergy Rapid Verified 05/17/24 16:24 Heart Rate gabapentin Allergy Unknown Verified 05/17/24 16:24 Iodinated Contrast Media Allergy Rash/Hives Verified 05/17/24 16:24 [Iodinated Contrast Media - IV Dye] iodine Allergy Rash/Hives Verified 05/17/24 16:24 Review of Systems ROS Statement: Those systems with pertinent positive or pertinent negative responses have been documented in the HPI. ROS Other: All systems not noted in ROS Statement are negative. Past Medical History Past Medical History: Atrial Fibrillation, Cancer, GERD/Reflux, Osteoarthritis (OA), Prostate Disorder Additional Past Medical History / Comment(s): Hiatal hernia. HX OF PVCs. LYMPHOMA History of Any Multi-Drug Resistant Organisms: None Reported Past Surgical History: Appendectomy, Cholecystectomy, Orthopedic Surgery Additional Past Surgical History / Comment(s): left knee, left rotator cuff , LEFT FOOT SURGERY Past Anesthesia/Blood Transfusion Reactions: No Reported Reaction Past Psychological History: No Psychological Hx Reported Smoking Status: Never smoker Past Alcohol Use History: None Reported Past Drug Use History: None Reported - Past Family History Brother(s) Family Medical History: Cancer Additional Family Medical History / Comment(s): LUNG CANCER Father Family Medical History: Cancer Additional Family Medical History / Comment(s): prostate Mother Family Medical History: Cancer Additional Family Medical History / Comment(s): uterine General Exam Limitations: no limitations General appearance: alert, in no apparent distress Head exam: Present: atraumatic, normocephalic, normal inspection Left Forearm Wrist exam: Present: normal inspection, full ROM. Absent: tenderness, swelling Hand Wrist exam: Present: full ROM, tenderness, laceration. Absent: normal inspection (4 cm laceration present through second digit of left hand involving nail and skin), swelling, erythema Vascular: Present: normal capillary refill (Full sensation of distal second digit), radial pulse. Absent: vascular compromise Neurological exam: Present: alert, oriented X3 Psychiatric exam: Present: normal affect, normal mood Skin exam: Present: warm, dry, intact, normal color. Absent: rash Course Vital Signs 05/17/24 05/17/24 05/17/24 16:25 18:48 19:07 Temperature 97.3 F L 98.1 F Pulse Rate 71 61 72 Respiratory 18 17 18 Rate Blood Pressure 169/83 166/75 159/90 O2 Sat by Pulse 100 94 L 96 Oximetry Procedures - Laceration Laceration #1 Consent Obtained: verbal consent Indication: laceration Site: hand Size (cm): 4 Description: linear Depth: simple, single layer Anesthetic Used: lidocaine 1%, without epi Anesthesia Technique: nerve block Amount (mls): 3 Pre-repair: wound explored, irrigated extensively, deep structures intact Type of Sutures: nylon Size of Sutures: 4-0 Number of Sutures: 3 Technique: simple, interrupted Patient Tolerated Procedure: well, no complications Additional Comments: Neurovascularly intact status post procedure Medical Decision Making - Medical Decision Making Was pt. sent in by a medical professional or institution (, PA, TOWER AIR TRAFFIC CONTROL SPECIALIST, urgent care, hospital, or longterm...) When possible be specific @ -No Did you speak to anyone other than the patient for history (EMS, parent, family, police, friend...)? What history was obtained from this source @ -No Did you review nursing and triage notes (agree or disagree)? Why? @ -I reviewed and agree with nursing and triage notes Were old charts reviewed (outside hosp., previous admission, EMS record, old EKG, old radiological studies, urgent care reports/EKG's, longterm records)? Report findings @ -No old charts were reviewed Differential Diagnosis (chest pain, altered mental status, abdominal pain women, abdominal pain men, vaginal bleeding, weakness, fever, dyspnea, syncope, headache, dizziness, GI bleed, back pain, seizure, CVA, palpatations, mental health, musculoskeletal)? @ -Differential Musculoskeletal Muscular strain, contusion, ligament sprain, fracture, arthritis, septic arthritis, bursitis, cellulitis, muscle spasm, nerve compression, DVT, arterial occlusion, herpes zoster, electrolyte abnormality, tumor.... This is not meant to be in all inclusive list EKG interpreted by me (3pts min.). @ -None X-rays interpreted by me (1pt min.). @ - x-ray left hand reveals no acute process CT interpreted by me (1pt min.). @ -None done U/S interpreted by me (1pt. min.). @ -None done What testing was considered but not performed or refused? (CT, X-rays, U/S, labs)? Why? @ -None What meds were considered but not given or refused? Why? @ -None Did you discuss the management of the patient with other professionals (professionals i.e. , PA, TOWER AIR TRAFFIC CONTROL SPECIALIST, lab, RT, psych nurse, director of social media marketing, collar tailor, teacher, sailing officer, disease case manager rn)? Give summary @ -No Was smoking cessation discussed for >3mins.? @ -No Was critical care preformed (if so, how long)? @ -No Were there social determinants of health that impacted care today? How? (Homelessness, low income, unemployed, alcoholism, drug addiction, olmedo sportation, low edu. Level, literacy, decrease access to med. care, long-term, rehab)? @ -No Was there de-escalation of care discussed even if they declined (Discuss DNR or withdrawal of care, Hospice)? DNR status @ -No What co-morbidities impacted this encounter? (DM, HTN, Smoking, COPD, CAD, Cancer, CVA, ARF, Chemo, Hep., AIDS, mental health diagnosis, sleep apnea, morbid obesity)? @ -None Was patient admitted / discharged? Hospital course, mention meds given and route, prescriptions, significant lab abnormalities, going to OR and other pertinent info. @ -Discharge. This is an 83-year-old male presenting with left finger laceration prior to arrival. Neurovascularly intact. There is a 4 cm laceration of left second digit involving nail and skin. Tetanus was updated. X-ray left hand reveals no acute process. Wound was thoroughly irrigated and 3 sutures were placed to skin surrounding nail. Neurovascularly intact status post procedure. Advised to follow-up in 7 days for suture removal. Antibiotic prescribed for antibacterial prophylaxis. Appropriate return precautions and follow-up care discussed. Case was discussed with my ED attending Dr. Hernandez. Undiagnosed new problem with uncertain prognosis? @ -No Drug Therapy requiring intensive monitoring for toxicity (Heparin, Nitro, Insulin, Cardizem)? @ -No Were any procedures done? @ -Yes, 3 sutures placed to left index finger Diagnosis/symptom? @ -Left second digit laceration Acute, or Chronic, or Acute on Chronic? @ -Acute Uncomplicated (without systemic symptoms) or Complicated (systemic symptoms)? @ -Uncomplicated Side effects of treatment? @ -No Exacerbation, Progression, or Severe Exacerbation? @ -No Poses a threat to life or bodily function? How? (Chest pain, [place], [place], pneumonia, PE, COPD, DKA, ARF, appy, cholecystitis, CVA, Diverticulitis, Homicidal, Suicidal, threat to staff... and all critical care pts) @ -No Disposition Clinical Impression: Laceration of left index finger Disposition: HOME SELF-CARE Condition: Stable Instructions (If sedation given, give patient instructions): Finger Laceration (ED) Additional Instructions: Take Keflex as prescribed. Keep wound dry for 24 hours, then you may wash gently with antibacterial soap and water. Follow-up in 7 days for suture removal. Please return to the Emergency Department if symptoms worsen or any other concerns. Prescriptions: Cephalexin [Keflex] 500 mg PO Q12HR 7 Days #14 cap Is patient prescribed a controlled substance at d/c from ED?: No Referrals: Pranay Dickson DO [Primary Care Provider] - 1-2 days Time of Disposition: 18:56
[2024-05-17] MEDS: LIDOCAINE 1% INJ 10MG/ML (20 ML MDV) SQ ONE (17:06)
[2024-05-17] MEDS: DIPH,PERTUS(ACELL)TETVAC-LF 0.5 ML VIAL IM ONE (17:14)
--- NOTE | 2024-05-17 17:39 | XR ---
EXAMINATION TYPE: XR hand complete LT DATE OF EXAM: 05/17/2024 5:16 PM COMPARISON: None CLINICAL INDICATION: Male, 83 years old with history of left finger injury; PHH, pain TECHNIQUE: XR hand complete LT 4 views were obtained. FINDINGS: Normal alignment of the visualized joints. No acute osseous pathology is identified. No e vidence of soft tissue swelling. Multifocal degeneration changes with joint space narrowing and osteo phyte formation. No radiopaque foreign body. IMPRESSION: 1. No acute osseous pathology. 2. No radiopaque foreign body. 3. Multifocal osteoarthrosis throughout the joints of the hand. [facility], , 05/17/2024 5:36 PM
[2024-05-17 19:08] VITALS: BP 159/90; PULSE 72; RESP 18; TEMP 98.1
== END 2024-05-17 21:18 | disposition home or self-care (01) ==
LOC: EC 16:12
DX: S61.211A Laceration without foreign body of left index finger without damage to nail, initial encounter (principal); Z88.8 Allergy status to other drugs, medicaments and biological substances; Z91.041 Radiographic dye allergy status; Z88.5 Allergy status to narcotic agent; Z23 Encounter for immunization; W26.8XXA Contact with other sharp object(s), not elsewhere classified, initial encounter
CPT/HCPCS: 73130; 90715; 99282; 90471; 12002; J2003

== ENCOUNTER → 2024-08-12 | Outpatient (CLI) | payer MEDICARE ==
[2024-08-12 15:34] LABS: African American GFR (CKD) >90 (>60 ml/min/1.73 sqM); Blood Urea Nitrogen 19 mg/dL (9-20); Non-African American GFR(CKD) 87 (>60 ml/min/1.73 sqM)
--- NOTE | 2024-08-13 10:23 | CT ---
EXAMINATION TYPE: CT ChestAbdPelvis w con CT DLP: 1004.9 mGycm, Automated exposure control for dose reduction was used. DATE OF EXAM: 08/12/2024 4:37 PM COMPARISON: PET/CT 02/08/2022, 02/02/2021, 07/14/2020, 06/06/2018, 09/07/2016, CT abdomen and pelvis 08/20/19 17, CT chest abdomen pelvis 12/14/2015. 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 Technique: Multiple axial images of the chest, abdomen, and pelvis were obtained following the intrav enous administration of 100 mL Isovue-300. Oral contrast was administered. Two-dimensional coronal an d sagittal reconstructions were obtained. Findings: CHEST: LUNGS/ PLEURA: No pleural effusion or pneumothorax. Posterior right upper lobe reticular groundglass opacities. Stable right lower lobe 3 mm pulmonary nodule (series 4, image 47). Stable right midlung 5 mm pulmonary nodule (series 4, image 40). Stable left upper lobe 4 mm pulmonary nodule (series 4, im age 36). These are considered benign due to stability. No new or enlarging pulmonary nodules. Elevati on of the right hemidiaphragm. AIRWAY: Patent and unremarkable.. HEART: Size within normal limits.No pericardial effusion No significant coronary artery calcification s. MEDIASTINUM: No evidence of pathologic adenopathy. VASCULATURE: Stable aneurysmal dilatation of the aortic root measuring up to 4.2 cm. No evidence of pulmonary embolism. MUSCULOSKELETAL: No acute osseous abnormalities. No aggressive osseous lesion. Right AC joint arthrop athy. Multilevel anterior osteophytosis. SOFT TISSUES/LYMPH NODES: Unremarkable. LOWER NECK: No significant findings. ABDOMEN: ABDOMEN LIVER: Unremarkable GALLBLADDER AND BILE DUCTS: The gallbladder is surgically absent. No biliary ductal dilatation. PANCREAS: Unremarkable. SPLEEN: Unremarkable. ADRENAL GLANDS: Unremarkable. KIDNEYS AND URETERS: No evidence of hydronephrosis or renal calculus. The kidneys enhance symmetrical ly. Stable right renal lower pole 2.3 cm cyst. Additional right upper pole subcentimeter cyst. Contra st is demonstrated within both collecting systems on the delayed phase. PELVIS BLADDER: Unremarkable REPRODUCTIVE: Unremarkable. ABDOMEN & PELVIS STOMACH AND BOWEL: Stomach and duodenum are unremarkable. Few scattered sigmoid diverticula without e vidence for acute diverticulitis. No focal bowel wall thickening or surrounding inflammatory changes. Enteric contrast reaches the ileocecal junction. Mild amount of stool is present throughout the colo n. No evidence of bowel obstruction. PERITONEUM: No evidence of pneumoperitoneum or free fluid. VASCULATURE: Mild atherosclerotic calcifications are present throughout the abdominal aorta and its b ranches. No abdominal aortic aneurysm. MUSCULOSKELETAL: No acute osseous abnormalities. No aggressive osseous lesion. Mild dextrocurvature o f the lumbar spine. Mild multilevel degenerative disc disease. LYMPH NODES: A few enlarging paracaval and paraaortic lymph nodes identified with largest measuring u p to 2.2 cm (series 3, image 74). Previously measured up to 1.6 cm in prior PET/CT. No other suspicio us lymphadenopathy. SOFT TISSUE/ABDOMINAL WALL: Unremarkable IMPRESSION: 1. Few enlarging pericaval and periaortic lymph nodes from prior PET/CT concerning for possible recu rrence. No other suspicious lymphadenopathy. Consider further evaluation with PET/CT. 2. Posterior right upper lobe groundglass opacities concerning for an atypical pneumonia versus atel ectasis. 3. Colonic diverticulosis without evidence for acute diverticulitis. 4. Stable mild aortic root aneurysmal dilatation. [facility], , 08/13/2024 10:20 AM
== END | disposition home or self-care (01) ==
LOC: RADCTMAIN 14:52
PROVIDERS: ATTEND Internal Medicine Hematology & Oncology
DX: C82.01 Follicular lymphoma grade I, lymph nodes of head, face, and neck (principal); I88.0 Nonspecific mesenteric lymphadenitis; K26.9 Duodenal ulcer, unspecified as acute or chronic, without hemorrhage or perforation; M15.9 Polyosteoarthritis, unspecified; K57.30 Diverticulosis of large intestine without perforation or abscess without bleeding; R91.8 Other nonspecific abnormal finding of lung field; I71.21 Aneurysm of the ascending aorta, without rupture
CPT/HCPCS: 82565; 84520; 71260; 74177; 36415; Q9967

== ENCOUNTER → 2024-09-30 | Outpatient (CLI) | payer MEDICARE ==
--- NOTE | 2024-10-02 18:41 | PE ---
EXAMINATION TYPE: PET CT fusion skull to thigh DATE OF EXAM: 09/30/2024 CLINICAL INDICATION:Male, 83 years old with history of C82.01 Lymphoma; TECHNIQUE: Following the intravenous administration of 12.25 mCi of F-18 FDG, whole body images are performed from the skull base to the Mid thigh. Images are reviewed on the computer in the coronal, axial, and sagittal planes. Reconstructed rotating images are created on independent workstation an d reviewed on the computer. A non-contrast CT is performed in conjunction with the PET scan. Glucos e level 81 mg/dL CT DLP: 495 mGycm, Automated exposure control for dose reduction was used. COMPARISON: CT 08/12/2024, PET/CT 02/08/2022, MRI: None FINDINGS: Mediastinal SUV mean is 1.7. Hepatic parenchyma SUV mean is 2.2. SKULL BASE AND NECK: No suspicious radiotracer activity. CHEST, MEDIASTINUM, AND HILAR REGION: * Right perihilar lymphadenopathy max SUV 8.2. Measurements difficult without IV contrast. * Right middle lobe pulmonary nodule measuring 6 mm. Max SUV 0.9. * Right low paratracheal lymph node max SUV 3.4 measuring 10 mm in short axis. Focal uptake within t he left lower lobe superior segment max SUV 3.90 groundglass pulmonary nodule nodule in this region 4 mm groundglass opacities present. ABDOMEN AND PELVIS: * Scattered retroperitoneal lymph nodes the largest on the left, Max SUV 4.9 measuring 1.4 cm. Addit ional, Multiple lymph nodes are identified in the retroperitoneum. MUSCULOSKELETAL STRUCTURES: No suspicious radiotracer activity. OTHER CT: Atherosclerosis of the arterial vasculature. The gallbladder surgically absent. Prostatomeg akira IMPRESSION: 1. New FDG avid lymphadenopathy in the mediastinum as well as retroperitoneal FDG avid lymph nodes c ompatible with malignancy. 2. Right middle lobe pulmonary nodule and which is stable in size from prior and likely benign howev er there is new left lower lobe superior segment groundglass pulmonary nodule present which is indete rminate at this time. 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 [facility], , 10/02/2024 6:39 PM
== END | disposition home or self-care (01) ==
LOC: RADPETMAIN 10:54
PROVIDERS: ATTEND Internal Medicine Hematology & Oncology
DX: C82.01 Follicular lymphoma grade I, lymph nodes of head, face, and neck (principal); R59.1 Generalized enlarged lymph nodes; R91.1 Solitary pulmonary nodule
CPT/HCPCS: 78815; A9552

== ENCOUNTER 2024-10-05 13:17 | Emergency (ER) | payer MEDICARE ==
--- NOTE | 2024-10-05 13:26 | ED ---
Trauma HPI - General Stated Complaint: Neck injury Time Seen by Provider: 10/05/24 13:24 Source: RN notes reviewed, old records reviewed Mode of arrival: ambulatory Limitations: no limitations - History of Present Illness Initial Comments: This Is an 83-year-old male unfortunately into today, he was out picking up infected stick when a tree displaces self and fell on top of him. Neck pain right shoulder pain severe patient was able to get up and ambulate when he was able to dislodge himself and call a neighbor, neighbors were able to bring him to the emergency department. Patient has severe neck pain severe right shoulder pain no shortness of breath no abdominal pain MD Complaint: injury, other (Branch fell on this patient) -: hour(s) Loss of Consciousness: yes Location: head, neck Location - Extremities: Right: Shoulder, Arm Severity scale (1-10): 10 Consistency: constant Associated Symptoms: chest pain Treatments Prior to Arrival: other (0) - Related Data Home Medications Medication Instructions Recorded Confirmed Propafenone [Rythmol] 150 mg PO BID 07/25/15 10/05/24 Allergies Allergy/AdvReac Type Severity Reaction Status Date / Time epinephrine Allergy Rapid Verified 10/05/24 14:49 Heart Rate gabapentin Allergy Unknown Verified 10/05/24 14:49 Iodinated Contrast Media Allergy Rash/Hives Verified 10/05/24 14:49 [Iodinated Contrast Media - IV Dye] iodine Allergy Rash/Hives Verified 10/05/24 14:49 Review of Systems ROS Statement: Those systems with pertinent positive or pertinent negative responses have been documented in the HPI. ROS Other: All systems not noted in ROS Statement are negative. Past Medical History Past Medical History: Atrial Fibrillation, Cancer, GERD/Reflux, Osteoarthritis (OA), Prostate Disorder Additional Past Medical History / Comment(s): Hiatal hernia. HX OF PVCs. L YMPHOMA History of Any Multi-Drug Resistant Organisms: None Reported Past Surgical History: Appendectomy, Cholecystectomy, Orthopedic Surgery Additional Past Surgical History / Comment(s): left knee, left rotator cuff , LEFT FOOT SURGERY Past Anesthesia/Blood Transfusion Reactions: No Reported Reaction Past Psychological History: No Psychological Hx Reported Smoking Status: Never smoker Past Alcohol Use History: None Reported Past Drug Use History: None Reported - Past Family History Brother(s) Family Medical History: Cancer Additional Family Medical History / Comment(s): LUNG CANCER Father Family Medical History: Cancer Additional Family Medical History / Comment(s): prostate Mother Family Medical History: Cancer Additional Family Medical History / Comment(s): uterine General Exam General appearance: alert, in no apparent distress Head exam: Present: atraumatic, normocephalic, normal inspection Eye exam: Present: normal appearance, PERRL, EOMI. Absent: scleral icterus, conjunctival injection, periorbital swelling ENT exam: Present: normal exam, mucous membranes moist Neck exam: Present: normal inspection. Absent: tenderness, meningismus, lymphadenopathy Respiratory exam: Present: normal lung sounds bilaterally. Absent: respiratory distress, wheezes, rales, rhonchi, stridor Cardiovascular Exam: Present: regular rate, normal rhythm, normal heart sounds. Absent: systolic murmur, diastolic murmur, rubs, gallop, clicks GI/Abdominal exam: Present: soft, normal bowel sounds. Absent: distended, tenderness, guarding, rebound, rigid Extremities exam: Present: normal inspection, full ROM, normal capillary refill. Absent: tenderness, pedal edema, joint swelling, calf tenderness Back exam: Present: normal inspection Neurological exam: Present: alert, oriented X3, CN II-XII intact Psychiatric exam: Present: normal affect, normal mood Skin exam: Present: warm, dry, intact, normal color. Absent: rash Course Vital Signs 10/05/24 13:17 Temperature 98.3 F Pulse Rate 63 Respiratory 18 Rate Blood Pressure 151/73 O2 Sat by Pulse 100 Oximetry - Reevaluation(s) Reevaluation #1: 10/05/24 14:18 Medical records reviewed Reevaluation #2: 10/05/24 16:07 Patient's pain is difficult to control but improving Reevaluation #3: 10/05/24 16:07 Patient informed of results questions answered Reevaluation #4: Was pt. sent in by a medical professional or institution (, PA, TRANSMISSION SYSTEMS OPERATOR, urgent care, hospital, or fci...) When possible be specific @ -no Did you speak to anyone other than the patient for history (EMS, parent, family, police, friend...)? What history was obtained from this source @ -no Did you review nursing and triage notes (agree or disagree)? Why? @ -agree Are old charts reviewed (outside hosp., previous admission, EMS record, old EKG, old radiological studies, urgent care reports/EKG's, fci records)? Report findings @ -yes Differential Diagnosis (chest pain, altered mental status, abdominal pain women, abdominal pain men, vaginal bleeding, weakness, fever, dyspnea, syncope, headache, dizziness, GI bleed, back pain, seizure, CVA, palpatations, mental health, musculoskeletal)? @ -prior EKG interpreted by me (3pts min.). @ -yes X-rays interpreted by me (1pt min.). @ -yes negative for acute disease CT interpreted by me (1pt min.). @ -no U/S interpreted by me (1pt. min.). @ -no What testing was considered but not performed or refused? (CT, X-rays, U/S, labs)? Why? @ -none What meds were considered but not given or refused? Why? @ -none Did you discuss the management of the patient with other professionals ( professionals i.e. , PA, TRANSMISSION SYSTEMS OPERATOR, lab, RT, psych nurse, addiction social worker, director of knowledge management, teacher, environmental compliance officer, case management social worker)? Give summary @ -no Was smoking cessation discussed for >3mins.? @ -no Was critical care preformed (if so, how long)? @ -no Were there social determinants of health that impacted care today? How? (Homelessness, low income, unemployed, alcoholism, drug addiction, transportation, low edu. Level, literacy, decrease access to med. care, correction, rehab)? @ -none Was there de-escalation of care discussed even if they declined (Discuss DNR or withdrawal of care, Hospice)? DNR status @ -no What co-morbidities impacted this encounter? (DM, HTN, Smoking, COPD, CAD, Cancer, CVA, ARF, Chemo, Hep., AIDS, mental health diagnosis, sleep apnea, morbid obesity)? @ -none Was patient admitted / discharged? Hospital course, mention meds given and route, prescriptions, significant lab abnormalities, going to OR and other pertinent info. @ - Undiagnosed new problem with uncertain prognosis? @ -no Drug Therapy requiring intensive monitoring for toxicity (Heparin, Nitro, Insulin, Cardizem)? @ -no Were any procedures done? @ -no Diagnosis/symptom? @ - Acute, or Chronic, or Acute on Chronic? @ -Acute Uncomplicated (without systemic symptoms) or Complicated (systemic symptoms)? @ -Complicated Side effects of treatment? @ -no Exacerbation, Progression, or Severe Exacerbation? @ -exacerbation Poses a threat to life or bodily function? How? (Chest pain, USA, GA, pneumonia, PE, COPD, DKA, ARF, appy, cholecystitis, CVA, Diverticulitis, Homicidal, Suicidal, threat to staff... and all critical care pts) @ -yes Medical Decision Making - Medical Decision Making 83 Male with traumatic injury, patient got into an accident in his backyard with a tree, right shoulder pain and injury pain is controlled patient can be discharged home - Lab Data Result diagrams: 10/05/24 13:52 10/05/24 13:52 Lab Results 10/05/24 10/05/24 10/05/24 Range/Units 13:52 13:52 13:52 WBC 4.36 L (4.50-10.00) 10*3/uL RBC 3.94 L (4.40-5.60) 10*6/uL Hgb 12.6 L (13.0-17.0) g/dL Hct 36.3 L (39.6-50.0) % MCV 92.1 (80.0-97.0) fL MCH 32.0 (27.0-32.0) pg MCHC 34.7 (32.0-37.0) g/dL Plt Count 144 (140-440) 10*3/uL MPV 11.6 (9.5-12.2) fL Immature Gran % (Auto) 0.5 % Neutrophils % 58.7 % Lymphocytes % 24.3 % Monocytes % 14.2 % Eosinophils % 1.6 % Basophils % 0.7 % Immature Gran # 0.02 (0.00-0.04) 10*3/uL Neutrophils # 2.56 (1.80-7.70) 10*3/uL Lymphocytes # 1.06 (0.90-5.00) 10*3/uL Monocytes # 0.62 (0.20-1.00) 10*3/uL Eosinophils # 0.07 (0.04-0.35) 10*3/uL Basophils # 0.03 (0.00-0.10) 10*3/uL PT 10.7 (10.0-12.5) sec INR 1.0 (<1.2) APTT 23.6 (22.0-30.0) sec Sodium 132 L (137-145) mmol/L Potassium 4.2 (3.5-5.1) mmol/L Chloride 101 (98-107) mmol/L Carbon Dioxide 23 (22-30) mmol/L Anion Gap 8 mmol/L BUN 14 (9-20) mg/dL Creatinine 0.78 (0.66-1.25) mg/dL Est GFR (CKD-EPI)AfAm >90 (>60 ml/min/1.73 sqM) Est GFR (CKD-EPI)NonAf 85 (>60 ml/min/1.73 sqM) Glucose 124 H (74-99) mg/dL Calcium 9.1 (8.4-10.2) mg/dL Phosphorus 3.4 (2.5-4.5) mg/dL Magnesium 1.8 (1.6-2.3) mg/dL Total Bilirubin 0.7 (0.2-1.3) mg/dL AST 28 (17-59) U/L ALT 15 (4-49) U/L Alkaline Phosphatase 40 (38-126) U/L Troponin I (0.000-0.034) ng/mL Total Protein 6.3 (6.3-8.2) g/dL Albumin 3.8 (3.5-5.0) g/dL 10/05/24 Range/Units 13:52 WBC (4.50-10.00) 10*3/uL RBC (4.40-5.60) 10*6/uL Hgb (13.0-17.0) g/dL Hct (39.6-50.0) % MCV (80.0-97.0) fL MCH (27.0-32.0) pg MCHC (32.0-37.0) g/dL Plt Count (140-440) 10*3/uL MPV (9.5-12.2) fL Immature Gran % (Auto) % Neutrophils % % Lymphocytes % % Monocytes % % Eosinophils % % Basophils % % Immature Gran # (0.00-0.04) 10*3/uL Neutrophils # (1.80-7.70) 10*3/uL Lymphocytes # (0.90-5.00) 10*3/uL Monocytes # (0.20-1.00) 10*3/uL Eosinophils # (0.04-0.35) 10*3/uL Basophils # (0.00-0.10) 10*3/uL PT (10.0-12.5) sec INR (<1.2) APTT (22.0-30.0) sec Sodium (137-145) mmol/L Potassium (3.5-5.1) mmol/L Chloride (98-107) mmol/L Carbon Dioxide (22-30) mmol/L Anion Gap mmol/L BUN (9-20) mg/dL Creatinine (0.66-1.25) mg/dL Est GFR (CKD-EPI)AfAm (>60 ml/min/1.73 sqM) Est GFR (CKD-EPI)NonAf (>60 ml/min/1.73 sqM) Glucose (74-99) mg/dL Calcium (8.4-10.2) mg/dL Phosphorus (2.5-4.5) mg/dL Magnesium (1.6-2.3) mg/dL Total Bilirubin (0.2-1.3) mg/dL AST (17-59) U/L ALT (4-49) U/L Alkaline Phosphatase (38-126) U/L Troponin I <0.012 (0.000-0.034) ng/mL Total Protein (6.3-8.2) g/dL Albumin (3.5-5.0) g/dL - EKG Data -: EKG Interpreted by Me (EKG is s sinus 60 MO 154 QRS 98 QTc 427) - Radiology Data Radiology results: report reviewed (Brain C-spine chest and shoulder x-ray negative for traumatic injury), image reviewed Disposition Clinical Impression: Right shoulder pain, Shoulder contusion, Shoulder injury Disposition: HOME SELF-CARE Instructions (If sedation given, give patient instructions): Swollen Joint (ED), Shoulder Pain (ED) Is patient prescribed a controlled substance at d/c from ED?: No Referrals: Pranay Dickson DO [Primary Care Provider] - 1-2 days Jose Granados DO [Doctor of Osteopathic Medicine] - 1-2 days Time of Disposition: 15:30
[2024-10-05] MEDS: SODIUM CHLORIDE 0.9% 1,000 ML IV ONE (13:46)
[2024-10-05] MEDS: MORPHINE SULFATE 4 MG/ML SYRINGE IV STA (13:46)
[2024-10-05] MEDS: ONDANSETRON 4 MG/2 ML VIAL IVP STA (13:46)
[2024-10-05 13:58] LABS: Basophils # (A) 0.03 10*3/uL (0.00-0.10); Basophils % (A) 0.7 %; Eosinophils # (A) 0.07 10*3/uL (0.04-0.35); Eosinophils % (A) 1.6 %; HCT 36.3 % (39.6-50.0); HGB 12.6 g/dL (13.0-17.0); Lymphocytes # (A) 1.06 10*3/uL (0.90-5.00); Lymphocytes % (A) 24.3 %; MCHC 34.7 g/dL (32.0-37.0); MCV 92.1 fL (80.0-97.0); Mean Platelet Volume 11.6 fL (9.5-12.2); Monocytes # (A) 0.62 10*3/uL (0.20-1.00); Monocytes % (A) 14.2 %; Neutrophils # (A) 2.56 10*3/uL (1.80-7.70); Neutrophils % (A) 58.7 %; Platelet Count 144 10*3/uL (140-440); RBC 3.94 10*6/uL (4.40-5.60); RDW 13.1 % (11.5-14.5); WBC 4.36 10*3/uL (4.50-10.00)
[2024-10-05 14:13] LABS: ALT 15 U/L (4-49); AST 28 U/L (17-59); African American GFR (CKD) >90 (>60 ml/min/1.73 sqM); Albumin 3.8 g/dL (3.5-5.0); Alkaline Phosphatase 40 U/L (38-126); Anion Gap 8 mmol/L; Blood Urea Nitrogen 14 mg/dL (9-20); Calcium 9.1 mg/dL (8.4-10.2); Carbon Dioxide 23 mmol/L (22-30); Chloride 101 mmol/L (98-107); Glucose 124 mg/dL (74-99); Magnesium 1.8 mg/dL (1.6-2.3); Non-African American GFR(CKD) 85 (>60 ml/min/1.73 sqM); Phosphorus 3.4 mg/dL (2.5-4.5); Potassium 4.2 mmol/L (3.5-5.1); Sodium 132 mmol/L (137-145); Total Bilirubin 0.7 mg/dL (0.2-1.3); Total Protein 6.3 g/dL (6.3-8.2)
[2024-10-05 14:15] LABS: Partial Thromboplastin Time 23.6 sec (22.0-30.0); Prothrombin Time 10.7 sec (10.0-12.5)
--- NOTE | 2024-10-05 14:17 | CT ---
EXAMINATION TYPE: CT brain davidson wo con DATE OF EXAM: 10/05/2024 COMPARISON: None CLINICAL INDICATION: Male, 83 years old with history of pain; PHH, Tree fell on patient TECHNIQUE: CT scan of the head and cervical spine are performed without contrast. CT DLP: 1608.[address] CTDI: mGy Automated exposure control for dose reduction was used. Findings: Head CT: Ventricles, basal cisterns and sulci over convexities are within normal limits for the patient's age and there is no mass, mass effect or shift of midline structures. No abnormal density is seen throughout the brain parenchyma and there is no acute intra or extra-axia l hemorrhage. Posterior fossa including the brainstem, fourth ventricle and cerebellar pontine angles are grossly n ormal. The intraorbital contents appear normal and symmetric. Visualized paranasal sinuses are well aerated. The calvarium is intact. CT cervical spine: Craniovertebral junction relationships and prevertebral soft tissues are normal. The cervical vertebral segments are normal in height and alignment and there is no fracture subluxati on. There is mild disc space narrowing and spondylosis at the C3-4 and C4-5 levels and moderate to severe disc space narrowing and spondylosis at the C5-6 and C6-7 levels. There is mild facet arthropathy. There is mild degeneration and uncovertebral joints at the C3-4 and C4-5 levels and moderate degenerative change of the intervertebral joints at C5-6 and C6-7 levels. The bony cervical canal is widely patent and there is no bony encroachment of the neural foramina. The paraspinal soft tissues unremarkable. IMPRESSION: 1. Head CT: No acute bleed or mass effect. 2. CT cervical spine: No acute trauma. Degenerative disc disease and osteoarthritis as described yanick cruz [facility], Workstation: [facility], 10/05/2024 2:15 PM
--- NOTE | 2024-10-05 15:33 | XR ---
EXAMINATION TYPE: XR shoulder complete RT DATE OF EXAM: 10/05/2024 CLINICAL HISTORY: pain TECHNIQUE: Three views of the right shoulder are obtained. COMPARISON: None FINDINGS: There is no acute fracture/dislocation evident. The acromioclavicular and glenohumeral pankaj int spaces appear moderate narrowing. The visualized ribs are intact and unremarkable. IMPRESSION: 1. There is no acute fracture or dislocation. ICD 10 NO FRACTURE, INITIAL EVALUATION [facility], , 10/05/2024 3:30 PM
--- NOTE | 2024-10-05 15:34 | XR ---
EXAMINATION TYPE: XR chest 2V DATE OF EXAM: 10/05/2024 3:24 PM COMPARISON: 09/18/2023 CLINICAL INDICATION: Male, 83 years old with history of pain: Shortness of breath TECHNIQUE: XR chest 2V views of the chest are obtained. FINDINGS: Scattered senescent parenchymal changes noted. Hyperinflation compatible with COPD. No evidence for infiltrate. No evidence for atelectasis. Heart size is stable. Mediastinal structures are stable and grossly unremarkable. No evidence for hilar prominence. Degenerative changes dorsal spine. IMPRESSION: 1. No evidence for acute pulmonary disease. [facility], , 10/05/2024 3:32 PM
[2024-10-05] MEDS: traMADol 50 MG STARTER PACK 3 TAB BTL PO STA (16:01)
[2024-10-05] MEDS: ACET/COD 300 MG/30 MG STARTER PACK 6 TAB BTL PO STA (16:02)
[2024-10-05] MEDS: HYDROmorphone 2 MG/ML 1 ML SYRINGE IVP STA (16:04)
[2024-10-05] MEDS: KETOROLAC 15 MG/ML 1 ML VIAL IVP STA (16:05)
[2024-10-05 17:00] VITALS: BP 148/67; PULSE 68; RESP 17; TEMP 98.2
== END 2024-10-05 16:40 | disposition home or self-care (01) ==
LOC: EC 13:17
DX: S40.011A Contusion of right shoulder, initial encounter (principal); Z88.8 Allergy status to other drugs, medicaments and biological substances; Z91.041 Radiographic dye allergy status; W20.8XXA Other cause of strike by thrown, projected or falling object, initial encounter
CPT/HCPCS: 36415; 93005; 80053; 83735; 84100; 84484; 85025; 85610; 85730; 73030; 71046; 72125; 70450; 99284; 96374; 96375; 96361; J2270; J1171; J2405; J1885

== ENCOUNTER → 2024-10-08 | Outpatient (CLI) | payer MEDICARE ==
--- NOTE | 2024-10-08 13:53 | CT ---
EXAMINATION TYPE: CT upper extremity RT wo con CT DLP: 279.4 mGycm, Automated exposure control for dose reduction was used. DATE OF EXAM: 10/08/2024 1:44 PM COMPARISON: Right shoulder radiograph 10/05/2024, PET/CT 09/30/2024 CLINICAL INDICATION:Male, 83 years old with history of S42.124A NONDISP FX OF ACROMIAL PROCESS, RIGHT PHAN; PHH, tree fell on right shoulder, pain TECHNIQUE: Axial images were obtained of the right upper extremity without the use of IV contrast. A dditional coronal and sagittal reformatted images and soft tissue and bone window were obtained for r eview. 3-D reconstruction was created on a separate workstation. FINDINGS: Acute minimally displaced transverse oriented fracture through the right acromion. No significant sof t tissue swelling or joint effusion. Mild AC joint arthropathy. No dislocation. Mild right shoulder a rthropathy. Arthropathy of the right sternal clavicular joint. Degenerative disc disease of the visua lized cervicothoracic spine. No radiopaque foreign body. Calcific granuloma within the posterior righ t upper lung. IMPRESSION: Acute minimally displaced fracture of the right acromion. [facility], , 10/08/2024 1:51 PM
== END | disposition home or self-care (01) ==
LOC: RADCTMAIN 13:13
PROVIDERS: ATTEND Orthopaedic Surgery
DX: S42.124A Nondisplaced fracture of acromial process, right shoulder, initial encounter for closed fracture (principal)